=== PATIENT | female | born 1965 | race Caucasian/White ===

== ENCOUNTER 2020-04-14 09:33 | Emergency (ER) | payer BC, SELFPAY ==
[2020-04-14 09:35] VITALS: BP 115/55; PULSE 79; RESP 18; TEMP 36.7; O2SAT 98; BMI 32.1
== END 2020-04-14 10:58 | disposition left against medical advice (07) ==
LOC: HO.ED 10:57
PROVIDERS: Emergency Provider Emergency Medicine; PCP Internal Medicine
DX: R51.9 Headache, unspecified (principal); R42 Dizziness and giddiness
CPT/HCPCS: 99281; 99282; 99283

== ENCOUNTER → 2020-08-04 12:59 | Outpatient (REF) | payer BC, SELFPAY ==
--- NOTE | 2020-08-04 13:15 | ECG_ITS ---
Hook-up date: 2020-08-04 13:18:00 Duration: 47:59:00 Test Indications: PALPITATIONS Medications: [id number] QRS complexes 2 Ventricular ectopics which represent <1 % of total QRS comp. 32 Supraventricular ectopics which represent <1 % of total QRS comp. * Paced QRS complexs which represent % of total QRS comp. VENTRICULAR ECTOPY 0 Isolated 0 Bigeminal Cycles 1 Couplets 0 Runs 0 Beats in Runs * Beats LONGEST at * BPM at :: -- * Beats FASTEST at * BPM at :: -- SUPRAVENTRICULAR ECTOPY 27 Isolated 1 Couplets 1 Runs 3 Beats in Runs 3 Beats LONGEST at 128 BPM at 07:45:41 2020-08-05 3 Beats FASTEST at 128 BPM at 07:45:41 2020-08-05 HEART RATES 50 MIN at 04:18:33 2020-08-05 83 AVG 164 MAX at 17:54:22 2020-08-04 LONGEST RR 1.3040 secs at 05:39:30 2020-08-05 S-T LEVELS Channel 1 - 128 mm at 13:18:00 2020-08-04 - 128 mm at 13:18:00 2020-08-04 Channel 2 - 128 mm at 13:18:00 2020-08-04 - 128 mm at 13:18:00 2020-08-04 Channel 3 - 128 mm at 03:23:71 -- - 128 mm at 03:23:71 Basic rhythm Normal sinus rhythm No long pause or profound bradycardia Rare Premature atrial complexes Patient did not report any symptoms in the diary Referred By: Allie Rossi Overread By: SALO SUAZO MD
== END ==
LOC: HO.CARD 12:59
PROVIDERS: PCP Internal Medicine; Visit Provider Psychiatry & Neurology Neurology
DX: R00.2 Palpitations (principal)
CPT/HCPCS: 93225; 93226

== ENCOUNTER 2020-08-30 15:09 | Outpatient (REF) | payer BC, SELFPAY ==
[2020-08-30 16:37] LABS: MANUAL DIFF FLAG NO
[2020-08-30 16:42] LABS: Basophils Percent Auto 0.4 % (0-2); Eosinophils Absolute Auto 0.1 X10*3/uL (0.0-0.4); Eosinophils Percent Auto 1.2 % (0-4); Hematocrit 41.8 % (37-47); Hemoglobin 14.3 g/dl (12.0-16.0); Imm Gran Abs Auto 0.02 X10*3/uL (0.00-0.03); Imm Gran Pct Auto 0.2 % (0.0-0.4); Lymphocytes Absolute Auto 2.8 X10*3/uL (1.2-4.9); Lymphocytes Percent Auto 30.7 % (20-40); Mean Corpuscular HGB Conc 34.2 g/dl (31.0-35.0); Mean Corpuscular Hemoglobin 29.1 pg (27.0-33.0); Mean Corpuscular Volume 85.1 fL (80-98); Mean Platelet Volume 9.9 fL (9.4-12.3); Monocytes Absolute Auto 0.5 X10*3/uL (0.1-1.2); Monocytes Percent Auto 5.6 % (2-11); Neutrophils Absolute Auto 5.6 X10*3/uL (2.0-8.3); Neutrophils Percent Auto 61.9 % (45-73); Platelet Count 221 X10*3/uL (160-400); Red Blood Count 4.91 X10*6/uL (4.20-5.50); Red Cell Distribution Width 12.7 % (11.0-16.0); White Blood Count 9.1 X10*3/uL (4.8-10.8)
[2020-08-30 17:05] LABS: Alanine Aminotransferase 21 U/L (0-31); Albumin Level 4.1 g/dL (3.5-5.0); Alkaline Phosphatase 81 U/L (39-117); Anion Gap 15 (12-20); Aspartate Amino Transferase 22 U/L (5-31); Bilirubin Total 0.8 mg/dL (0.0-1.0); Blood Urea Nitrogen 11 mg/dL (9-16); Calcium 9.5 mg/dL (8.4-10.2); Carbon Dioxide 22 mmol/L (22-29); Chloride 106 mmol/L (96-108); Cholesterol 173 mg/dL; Estimated Glomerular Filt Rate > 60; Glucose Fasting 83 mg/dL (60-99); HDL Cholesterol 54 mg/dL; LDL Cholesterol Calculated 109 mg/dl; Potassium 3.9 mmol/L (3.3-5.1); Sodium 139 mmol/L (135-145); Total Protein 6.6 g/dL (6.5-8.0); Triglycerides 53 mg/dL
[2020-08-30 17:27] LABS: TSH reflex Free T4 1.85 uIU/mL (0.32-4.0)
== END 2020-08-30 15:10 | disposition home or self-care (01) ==
LOC: HO.HMGCLDS 15:09
PROVIDERS: PCP Internal Medicine; Visit Provider Internal Medicine
DX: R00.2 Palpitations (principal); R42 Dizziness and giddiness
CPT/HCPCS: 36415; 80053; 80061; 84443; 85025

== ENCOUNTER → 2020-10-11 08:26 | Outpatient (BNVA) | payer BC, SELFPAY | PROVIDERS: PCP Internal Medicine; Referring Provider Internal Medicine; Visit Provider Internal Medicine ==

== ENCOUNTER → 2020-11-01 15:59 | Outpatient (REF) | payer BC, SELFPAY | LOC: HO.SL 15:59 | PROVIDERS: PCP Internal Medicine; Visit Provider Internal Medicine | DX: G47.33 Obstructive sleep apnea (adult) (pediatric) (principal); R00.2 Palpitations | CPT/HCPCS: 95806 ==

== ENCOUNTER → 2020-11-13 08:34 | Outpatient (REF) | payer BC, SELFPAY ==
--- NOTE | 2020-11-13 08:38 | CA_ITS ---
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 The calculated ejection fraction is 63% by biplane method. - No obvious valvular pathology seen on this study. Findings Left Ventricle Normal left ventricular cavity size. There is normal left ventricular wall thickness. The left ventricular systolic function is normal. The calculated ejection fraction is 63% by biplane method. There is no evidence of regional wall motion abnormalities. Diastolic function is normal for age. Right Ventricle Normal right ventricular cavity size and systolic function. Atria Both atria are normal in size. Aortic Valve There is a normal trileaflet aortic valve. There is no aortic valve stenosis. There is no aortic valve regurgitation. Mitral Valve The mitral valve appears normal. There is trace mitral valve regurgitation. There is no mitral valve stenosis. Pulmonic Valve The pulmonic valve was not well visualized. Tricuspid Valve Normal tricuspid valve structure. There is mild tricuspid valve regurgitation. The pulmonary artery systolic pressure is normal. Great Vessels The aortic annulus, sinuses of valsalva, and asc aorta are normal in size. Venous The inferior vena cava is normal in size and collapses greater than 50% with inspiration. Pericardium/Pleural There is no evidence of pericardial effusion. Prior Study Comparison No prior study available for comparison. Recommendations, Care & Conclusions No obvious valvular pathology seen on this study. Measurements 2D Linear Measurements IVSd: 0.79 0.6-0.9/0.6-1.0 cm LVIDd: 4.50 3.9-5.3/4.2-5.9 cm LVIDd Index: 2.53 2.4-3.2/2.2-3.1 cm/m2 LVIDs: 2.89 2.0-3.6 cm LVPWd: 0.79 0.7-1.1 cm Ao Root: 2.60 2.1-3.5 cm LA Diam: 3.20 2.7-3.8/3.0-4.0 cm LAIDs Index: 1.80 1.5-2.3 cm/m2 LV Mass: 139.21 67-162/88-224 g LV Mass Index: 78.21 43-95/49-115 g/m2 LVOT Diam: 1.90 3.0+(-)1.3 cm 2D Systolic Function EF 2C: 62.80 >55% EF BiP: 63.00 >55% Mitral Valve MV Pk E: 0.67 MV PK A: 0.61 MV Decel Time: 160.00 E/A: 1.10 E'Lateral: 8.49 E'Medial: 8.05 E/E' Med: 8.40 E/E' Lat: 7.90 PHT: 47.00 MVA PHT: 4.68 Decel [place]: 4.21 Aortic Valve AoV Pk Harry: 1.05 AoV Pk Grad: 4.00 LVOT LVOT Pk Harry: 0.96 LVOT Mn Harry: 0.60 LVOT VTI: 0.22 LVOT Pk Grad: 4.00 LVOT Mn Grad: 2.00 LVOT Diam: 1.90 LVOT Area: 2.84 Diastolic Function MV Pk E: 0.67 MV Pk A: 0.61 E/A: 1.10 E'Medial: 8.05 E/E' Med: 8.40 E' Laterial: 8.49 E/E' Lat: 7.90 Right Ventricle TAPSE (mm): 1.87 Tricuspid Valve TR Pk Harry: 2.17 TR Pk Grad: 19.00 RA Press: 3.00 RVSP: 22.00 Great Vessels Aorta Ao Root-2D: 2.60 2.0-3.7 cm Ao Asc: 2.90 2.1-3.4 cm Updated in Other Vendor System with Status of Final Ed De La Cruz MD electronically signed on 11/13/2020 11:18:52 AM with status of Final
--- NOTE | 2020-11-13 08:38 | HM_ITS ---
Conclusion: 1. Patient was monitored for total period of 13 days and 21 hours. 2. Baseline rhythm is normal sinus rhythm with average heart rate of 79 beats per minute 3. 2 pauses noted with the longest pause of 2.62 seconds happening on 2nd day at 17:46 4. 3 short burst of supra tachycardia, longest of 9 beats 5. Total of 826 PACs accounting for 0.05% of total beats are cardiac for very rare PACs 6. No patient reported events MTDD
== END ==
LOC: HO.CARD 08:34
PROVIDERS: Visit Provider Internal Medicine
DX: R00.2 Palpitations (principal)
CPT/HCPCS: 93246; 93306; Q9957

== ENCOUNTER → 2020-12-05 15:25 | Outpatient (BNVA) | payer BC, SELFPAY | PROVIDERS: PCP Internal Medicine; Visit Provider Internal Medicine ==

== ENCOUNTER → 2020-12-07 15:09 | Outpatient (BNVA) | payer BC, SELFPAY | PROVIDERS: PCP Internal Medicine; Referring Provider Internal Medicine; Visit Provider Internal Medicine ==

== ENCOUNTER 2021-01-18 15:57 | Outpatient (REF) | payer BC, SELFPAY ==
--- NOTE | 2021-01-18 17:23 | PFT_ITS ---
Forced vital capacity, FEV1, GNL93-34, and MVV are all normal. Post bronchodilator therapy, there is no significant change. Total lung capacity and residual volume normal. Diffusion capacity normal. CONCLUSION: Normal pulmonary function test. No evidence of obstructive or restrictive pulmonary disorder. Tank Morris MD MSB/MODL / [phone]
== END 2021-01-18 15:58 | disposition home or self-care (01) ==
LOC: HO.RESP 15:57
PROVIDERS: PCP Internal Medicine; Visit Provider Internal Medicine
DX: J44.9 Chronic obstructive pulmonary disease, unspecified (principal); G47.34 Idiopathic sleep related nonobstructive alveolar hypoventilation; F17.200 Nicotine dependence, unspecified, uncomplicated
CPT/HCPCS: 94060; 94727; 94729

== ENCOUNTER 2021-02-02 14:07 | Outpatient (REF) | payer BC, SELFPAY ==
--- NOTE | ~2021-02-02 | CT_ITS ---
EXAMINATION: CT CHEST SCREENING CLINICAL INFORMATION: Nicotine dependence, cigarettes and complicated. COMPARISON: CT chest 12/02/2017. TECHNIQUE: Multidetector volumetric CT imaging of the chest is performed without contrast using low dose technique. Additional 2D coronal and sagittal reformatted images and axial 3D maximum intensity projection (MIP) images are generated on the CT workstation. This CT examination was performed using dose optimization techniques as appropriate, variously including the following: *Automated exposure control *Adjustment of mA and/or kV according to patient size (this includes techniques or standardized protocols for targeted exams where dose is matched to indication/reason for exam; i.e. extremities or head) *Use of iterative reconstruction technique DLP: 49 mGy-cm. FINDINGS: LUNGS: There is a 2 mm nodule right apical lobe axial image 82/6, 2 mm nodule right upper lobe medially axial image 85/6. Previously visualized right upper lobe nodule posteriorly subpleural location is not seen. Previously visualized ground-glass attenuation right upper lobe adjacent to the major fissure has resolved. There is no new mass or nodule seen. There is centrilobular and paraseptal emphysema. MEDIASTINUM: The central trachea and the bronchi widely patent. The thyroid lobes are symmetrical. There is a 7 mm 3 carinal lymph node. Heart size and the great vessels are normal caliber. No pericardial effusion seen. PLEURA: There is no pleural effusion. No pleural mass or thickening. AXILLA: No lymphadenopathy. UPPER ABDOMEN: Visualized liver, spleen, pancreas and bilateral adrenal glands unremarkable. The gallbladder has been surgically removed. OSSEOUS STRUCTURES: There is mild ventral spondylosis mid and lower dorsal spine. No lytic process. CT/CT lung screening IMPRESSION: Emphysema with small right upper lobe nodules are stable. Right upper lobe pulmonary nodule posterior segment seen previously is not seen at this time. No new nodules seen. Ground-glass attenuation seen in the right lower lobe superior segment has resolved. No abnormal mediastinal or axillary lymphadenopathy. No change in emphysema. ASSESSMENT: Lung-RADS category 2: Benign. RECOMMENDATION: Low-dose annual CT chest.
== END 2021-02-02 14:08 | disposition home or self-care (01) ==
LOC: HO.CT 14:07
PROVIDERS: PCP Internal Medicine; Visit Provider Physician Assistant Medical
DX: Z12.2 Encounter for screening for malignant neoplasm of respiratory organs (principal); F17.210 Nicotine dependence, cigarettes, uncomplicated
CPT/HCPCS: 71271; G0296

== ENCOUNTER → 2021-02-06 14:52 | Outpatient (BNVA) | payer BC, SELFPAY | PROVIDERS: PCP Internal Medicine; Visit Provider Internal Medicine ==

== ENCOUNTER 2021-05-22 07:27 | Emergency (ER) | payer BC, SELFPAY ==
--- NOTE | ~2021-05-22 | CT_ITS ---
EXAMINATION: CT BRAIN, CT CERVICAL SPINE, CT CHEST, ABDOMEN PELVIS WITHOUT CONTRAST. CLINICAL INFORMATION: Fall and neck pain. COMPARISON: None TECHNIQUE: 5 mm thin axial and reformatted 2 mm thin sagittal and coronal images of brain were obtained. Axial 3 mm thin and reformatted 2 mm thin images of cervical spine were obtained. Lastly axial 5 mm thin and reformatted 3 mm thin sagittal and coronal images of chest, abdomen and pelvis were obtained without contrast. DLP 2060 mGy. FINDINGS: BRAIN: There is no acute intra-axial, extra-axial bleed, masses, collection or midline shift. There is no acute infarction in evolution. There is no edema. The house to white matter differentiation is maintained normal. The lateral ventricles are symmetrical in size and configuration without enlargement. Bone windows reveal no calvarial fracture. There is a 6 mm cortical lucency along the right parietal bone on coronal image 140/34. There is no scalp soft tissue abnormality. Bilateral paranasal sinuses and mastoid air cells are well-aerated. CERVICAL SPINE: There is mild straightening of cervical lordosis. The vertebral heights and alignment is normal. There is grade 1 anterolisthesis C4 over C5. Rest of the alignment is normal. There is mild loss of C4-C5 disc height. Rest the disc heights are preserved normal. The craniovertebral junction and the C1-C2 alignment is normal. There is no visible acute fracture, dislocation or subluxation seen. There is mild degenerative facet joint arthropathy C6-C7, C5-C6 and bilateral C3-C4 disc levels. The lung apices are clear. Central tracheal airway is widely patent. Visualized bilateral parotid and submandibular glands are unremarkable. The right thyroid lobe is enlarged with posterior extension. CHEST: Both lungs are are expanded with diffuse groundglass attenuation seen in both upper lobes and dependent segments of both lower lobes. No focal contusion, or consolidation seen. There is mild emphysematous changes in both upper lobes. There is no pleural effusion or pneumothorax. No pleural calcified pleural plaques. Heart size and the great vessels are normal caliber. No mediastinal mass or lymphadenopathy seen. No abnormal lymph nodes. No pedicle effusion. There are no abnormal axillary lymph nodes. The chest wall is unremarkable. No osseous thoracic cage fractures visualized. There is mild ventral spondylosis mid and lower dorsal spine. ABDOMEN AND PELVIS: Visualized liver, spleen, pancreas and bilateral adrenal glands unremarkable. The gallbladder has been surgically removed. No solid organ laceration or free fluid seen. There is no hematoma. The abdominal aorta is of normal caliber. No recurrent mass or adenopathy seen. No abnormal lymph nodes. Both kidneys are symmetrical in size and density. No radiopaque calculi or hydronephrosis seen. Abdominal wall appears unremarkable. There is scattered stool and gas seen in the colon without any significant distention. The small bowel loops are normal caliber. Appendix is normal caliber. Imaging through the pelvis reveals anteverted uterus. There is no free fluid or free air seen. Bone windows reveal no lytic or sclerotic process. No fracture visualized. CT/CT abdomen pelvis wo con IMPRESSION: No acute intra-axial cranial process seen. There is a 6 mm lucency right parietal cortex. Question vascular rodgers or cyst. There is no acute fracture or dislocation in cervical spine. Mild degenerative facet joint arthropathy as described above. No acute process seen in the chest, abdomen or pelvis.
[2021-05-22 07:38] VITALS: BP 110/57; PULSE 72; RESP 18; TEMP 36.7; O2SAT 97; BMI 39.2
--- NOTE | 2021-05-22 07:42 | ECG_ITS ---
Test Reason : ?syncope Blood Pressure : / mmHG Vent. Rate : 063 BPM Atrial Rate : 063 BPM P-R Int : 156 ms QRS Dur : 078 ms QT Int : 420 ms P-R-T Axes : 027 036 034 degrees QTc Int : 429 ms Normal sinus rhythm Low voltage QRS Borderline ECG No previous ECGs available Referred By: Generic ED Physician Electronically Signed By:SALO SUAZO MD
[2021-05-22 08:00] VITALS: BP 107/61; PULSE 61; RESP 16; O2SAT 96
--- NOTE | 2021-05-22 08:46 | ED_ITS ---
HPI - Fall General Chief Complaint: Fall Stated Complaint: Fall/INJ Time Seen by Provider: 05/22/21 08:41 Source: patient and family (Spouse) Mode of arrival: ambulatory Limitations: no limitations History of Present Illness HPI Narrative: 55 years old female came in for evaluation after a fall twice since yesterday. Patient was taking her horses out when she thinks she tripped and fell on her right side, complaining of right chest wall pain, decline feeling dizzy or lightheadedness before the fall, no LOC before or after the fall. Patient complained of right shoulder pain/right chest wall/ribs pain. Patient also had a fall yesterday which is unusual for the patient to have a decline chest pain, no weakness, no numbness. Related Data Home Medications Medication Instructions Recorded Confirmed No Known Home Meds 04/27/20 12/07/20 Allergies Allergy/AdvReac Type Severity Reaction Status Date / Time aspirin [ASPIRIN] Allergy Unknown NAUSEA & Verified 05/22/21 07:38 VOMITING meperidine [From DEMEROL] Allergy Unknown UNKNOWN Verified 05/22/21 07:38 ibuprofen [IBUPROFEN] AdvReac Unknown NAUSEA & Verified 05/22/21 07:38 VOMITING Review of Systems Review of Systems: All other systems are reviewed and are negative Constitutional: Reports as per HPI and Reports no additional constitutional comp laints Eyes: Reports as per HPI and Reports no additional eye complaints Reports system reviewed and no additional complaints, except as documented Cardiovascular: Reports as per HPI and Reports no additional cardiovascular complaints Respiratory: Reports as per HPI and Reports no additional respiratory complaints Gastrointestinal: Reports as per HPI and Reports no additional gastrointestinal complaints Genitourinary: Reports no additional female genitourinary complaints Musculoskeletal: Reports no additional musculoskeletal complaints Skin/Breast: Reports system reviewed and no additional complaints, except as docu Psychiatric: Reports no additional psychiatric complaints Endocrine: Reports no additional endocrine complaints Hematologic/Lymphatic: Reports no additional hematologic/lymphatic complaints Allergic/Immunologic: Reports no additional allergic/immunologic complaints Reports system reviewed and no additional complaints, except as documented and Reports Abnormal speech present [facility] Past Medical History Medical History COPD (chronic obstructive pulmonary disease) Nocturnal hypoxemia Personal history of nicotine dependence Smoker Surgical History History of cholecystectomy (~2010) History of kidney surgery History of tonsillectomy Family History Family History Father Atrial fibrillation Diabetes Enlarged prostate Dementia Brother Atrial fibrillation Mother Dementia Breast cancer Social History Social History Housing: House Alcohol intake: current Alcohol intake frequency: does not drink Patient Tobacco Use Status: Current everyday Tobacco user Tobacco use type: Cigarette Cigarette Packs Per Day: 1 Cigarettes Per Day: 20 Years Smoked: onset 17, 1ppd x 38yrs - 38pyh Use of substances other than those prescribed or required for medical reasons: No Advance Directives: Yes Advance Directives Information Provided: No Advance Directives on File: No Current occupational status: employed Physical Exam Vital Signs: Vital Signs: Last Vital Signs Temp 98.0 F 05/22/21 07:38 Pulse 58 05/22/21 10:23 Resp 15 05/22/21 10:23 BP 108/61 05/22/21 10:23 Pulse Ox 97 05/22/21 10:23 BMI result Body Mass Index 39.2 Vital signs have been reviewed as appeared to be correct. Blood pressure normal. Heart rate normal. Respiration rate normal. Temperature normal. Oxygen saturation normal. Appearance: Alert. Oriented X3. No acute distress. Head: Normal external exam. Normocephalic. Atraumatic. No Gracia signs noted. No raccoon eyes noted Eyes: PERRLA. EOMI. Conjunctiva and sclera normal. Eyelids normal. ENT: TM's Normal. Pharynx normal. Uvula midline. Moist mucous membranes. No trismus noted. No drooling noted. No muffled voice noted. Neck: Normal inspection. Neck supple. FROM. No adenopathy. Thyroid Normal. No meningeal signs. No neck mass noted. CVS: Normal heart rate and rhythm. Heart sound normal. No murmurs noted. Pulses normal throughout. Respiratory: No respiratory distress. Painless inspiration. Breath sounds normal. No wheezes/rales/rhonchi noted. Chest tenderness to the right chest wall, accessory muscle usage noted or decreased air movement noted. Abdomen: Soft, tender right upper quadrant, no ecchymosis, no rebound tenderness, no guarding. Bowel sounds normal in all 4 quadrants. No distention noted. No organomegaly noted. No visible injury noted. Back: No CVA tenderness. Full range of motion noted. Skin: Skin warm and dry. Normal skin color. Normal skin turgor. No rashes/lesions/lacerations noted. Extremities: No lower extremity edema. Extremities exhibit normal range of motion. Extremities nontender. Neuro: Oriented X 3. Cranial nerve exam: II-XII are grossly intact No motor deficit. No sensory deficit. Reflexes normal. Course Course Course Narrative: Assessment and plan. 55-year-old female came in for evaluation after having a mechanical fall, patient declined LOC or being lightheadedness or dizzy. Patient has unremarkable electrolytes, slight leukocytosis could be stress related. Unremarkable cardiac enzymes, patient had a CT head/C- spine/chest/abdomen and pelvis unremarkable. EKG is unremarkable. MDM - Fall Medical Records Attestation: I reviewed the patient's medical records. Lab Data Attestation: I reviewed the patient's lab results. Result diagrams: 05/22/21 09:13 05/22/21 09:13 Labs: Lab Results 05/22/21 05/22/21 05/22/21 Range/Units 09:13 09:13 09:13 WBC 12.5 H (4.8-10.8) X10*3/uL RBC 5.30 (4.20-5.50) X10*6/uL Hgb 15.3 (12.0-16.0) g/dl Hct 45.8 (37.0-47.0) % MCV 86.4 (80.0-98.0) fL MCH 28.9 (27.0-33.0) pg MCHC 33.4 (31.0-35.0) g/dl RDW 12.7 (11.0-16.0) % Plt Count 230 (160-400) X10*3/uL MPV 9.8 (9.4-12.3) fL Immature Gran % (Auto) 0.5 H (0.0-0.4) % Neut % (Auto) 77.2 H (45-73) % Lymph % (Auto) 16.5 L (20-40) % Garden % (Auto) 4.8 (2-11) % Eos % (Auto) 0.6 (0-4) % Baso % (Auto) 0.4 (0-2) % Lymph # (Auto) 2.1 (1.2-4.9) X10*3/uL Garden # (Auto) 0.6 (0.1-1.2) X10*3/uL Eos # (Auto) 0.1 (0.0-0.4) X10*3/uL Baso # (Auto) 0.1 (0.0-0.2) X10*3/uL Abs Immat Gran (auto) 0.06 H (0.00-0.03) X10*3/uL Absolute Neuts (auto) 9.7 H (2.0-8.3) x10*3/uL Absolute Nucleated RBC 0.000 (0.0-0.012) X10*3/uL Nucleated RBC % (auto) 0.0 (0.0-0.2) /100WBC Sodium 142 (135-145) mmol/L Potassium 4.4 (3.3-5.1) mmol/L Chloride 109 H (96-108) mmol/L Carbon Dioxide 26 (22-29) mmol/L Anion Gap 11 L (12-20) BUN 11 (9-16) mg/dL Creatinine 0.84 (0.5-1.4) mg/dL Estim Creat Clear Calc 81.3 Estimated GFR > 60 Random Glucose 132 H (60-115) mg/dL Calcium 9.5 (8.4-10.2) mg/dL Total Bilirubin 0.5 (0.0-1.0) mg/dL Direct Bilirubin 0.2 (0.0-0.5) mg/dL AST 23 (5-31) U/L ALT 31 (0-31) U/L Alkaline Phosphatase 84 (39-117) U/L Troponin I High Sens < 3.5 (<3.5-17.0) ng/L B-Natriuretic Peptide 17 (<100) pg/mL Total Protein 6.8 (6.5-8.0) g/dL Albumin 4.1 (3.5-5.0) g/dL Lipase 18 (8-78) U/L Urine Color Urine Appearance Urine pH (5.0-8.0) Ur Specific [place] (1.005-1.025) Urine Protein (NEG-TRACE) MG/DL Urine Glucose (UA) (NEG) MG/DL Urine Ketones (NEG) MG/DL Urine Blood (NEG) Urine Nitrite (NEG) Ur Leukocyte Esterase (NEG) Urine RBC (0) /HPF Urine WBC (0-4) /HPF Ur Squamous Epith Cells /LPF Urine Bacteria /LPF Urine Mucus /LPF 05/22/21 Range/Units 09:57 WBC (4.8-10.8) X10*3/uL RBC (4.20-5.50) X10*6/uL Hgb (12.0-16.0) g/dl Hct (37.0-47.0) % MCV (80.0-98.0) fL MCH (27.0-33.0) pg MCHC (31.0-35.0) g/dl RDW (11.0-16.0) % Plt Count (160-400) X10*3/uL MPV (9.4-12.3) fL Immature Gran % (Auto) (0.0-0.4) % Neut % (Auto) (45-73) % Lymph % (Auto) (20-40) % Garden % (Auto) (2-11) % Eos % (Auto) (0-4) % Baso % (Auto) (0-2) % Lymph # (Auto) (1.2-4.9) X10*3/uL [place] # (Auto) (0.1-1.2) X10*3/uL Eos # (Auto) (0.0-0.4) X10*3/uL Baso # (Auto) (0.0-0.2) X10*3/uL Abs Immat Gran (auto) (0.00-0.03) X10*3/uL Absolute Neuts (auto) (2.0-8.3) x10*3/uL Absolute Nucleated RBC (0.0-0.012) X10*3/uL Nucleated RBC % (auto) (0.0-0.2) /100WBC Sodium (135-145) mmol/L Potassium (3.3-5.1) mmol/L Chloride (96-108) mmol/L Carbon Dioxide (22-29) mmol/L Anion Gap (12-20) BUN (9-16) mg/dL Creatinine (0.5-1.4) mg/dL Estim Creat Clear Calc Estimated GFR Random Glucose (60-115) mg/dL Calcium (8.4-10.2) mg/dL Total Bilirubin (0.0-1.0) mg/dL Direct Bilirubin (0.0-0.5) mg/dL AST (5-31) U/L ALT (0-31) U/L Alkaline Phosphatase (39-117) U/L Troponin I High Sens (<3.5-17.0) ng/L B-Natriuretic Peptide (<100) pg/mL Total Protein (6.5-8.0) g/dL Albumin (3.5-5.0) g/dL Lipase (8-78) U/L Urine Color YELLOW Urine Appearance HAZY Urine pH 5.5 (5.0-8.0) Ur Specific [place] 1.020 (1.005-1.025) Urine Protein NEG (NEG-TRACE) MG/DL Urine Glucose (UA) NEG (NEG) MG/DL Urine Ketones NEG (NEG) MG/DL Urine Blood 1+ H (NEG) Urine Nitrite NEG (NEG) Ur Leukocyte Esterase NEG (NEG) Urine RBC 0-2 (0) /HPF Urine WBC 0-2 (0-4) /HPF Ur Squamous Epith Cells 2+ /LPF Urine Bacteria 1+ /LPF Urine Mucus 1+ /LPF Imaging Data Head CT: Attestation: I personally reviewed and interpreted this imaging study as follows: Radiologist's impression: BRAIN: There is no acute intra-axial, extra-axial bleed, masses, collection or midline shift. There is no acute infarction in evolution. There is no edema. The house to white matter differentiation is maintained normal. The lateral ventricles are symmetrical in size and configuration without enlargement. Bone windows reveal no calvarial fracture. There is a 6 mm cortical lucency along the right parietal bone on coronal image 140/34. There is no scalp soft tissue abnormality. Bilateral paranasal sinuses and mastoid air cells are well-aerated.? Cervical spine CT: Attestation: I personally reviewed and interpreted this imaging study as follows: Radiologist's impression: There is mild straightening of cervical lordosis. The vertebral heights and alignment is normal. There is grade 1 anterolisthesis C4 over C5. Rest of the alignment is normal. There is mild loss of C4-C5 disc height. Rest the disc heights are preserved normal. The craniovertebral junction and the C1-C2 alignment is normal. There is no visible acute fracture, dislocation or subluxation seen. There is mild degenerative facet joint arthropathy C6-C7, C5-C6 and bilateral C3-C4 disc levels. The lung apices are clear. Central tracheal airway is widely patent. Visualized bilateral parotid and submandibular glands are unremarkable. The right thyroid lobe is enlarged with posterior extension. Chest CT: Attestation: I personally reviewed and interpreted this imaging study as follows: Radiologist's impression: oth lungs are are expanded with diffuse groundglass attenuation seen in both upper lobes and dependent segments of both lower lobes. No focal contusion, or consolidation seen. There is mild emphysematous changes in both upper lobes. There is no pleural effusion or pneumothorax. No pleural calcified pleural plaques. Heart size and the great vessels are normal caliber. No mediastinal mass or lymphadenopathy seen. No abnormal lymph nodes. No pedicle effusion. There are no abnormal axillary lymph nodes. The chest wall is unremarkable. No osseous thoracic cage fractures visualized. There is mild ventral spondylosis mid and lower dorsal spine. Abdomen and pelvis CT: Attestation: I personally reviewed and interpreted this imaging study as follows: Radiologist's impression: Visualized liver, spleen, pancreas and bilateral adrenal glands unremarkable. The gallbladder has been surgically removed. No solid organ laceration or free fluid seen. There is no hematoma. The abdominal aorta is of normal caliber. No recurrent mass or adenopathy seen. No abnormal lymph nodes. Both kidneys are symmetrical in size and density. No radiopaque calculi or hydronephrosis seen. Abdominal wall appears unremarkable. There is scattered stool and gas seen in the colon without any significant distention. The small bowel loops are normal caliber. Appendix is normal caliber. Imaging through the pelvis reveals anteverted uterus. There is no free fluid or free air seen. Bone windows reveal no lytic or sclerotic process. No fracture visualized. ECG Data Attestation: I personally reviewed and interpreted this ECG as follows: Interpretation: Normal sinus rhythm at 63 beats per minutes, normal axis deviation, normal intervals. No ST-T changes. Discharge Plan Discharge Clinical Impression: Accident due to mechanical fall without injury, Chest wall contusion Patient Disposition: Home, Self-Care Instructions: Contusion in Adults (ED) Additional Instructions: Take Tylenol 500 mg or ibuprofen 200 mg every 6 hours if needed for pain, seek medical attention if having chest pain or feeling dizzy or lightheadedness. Prescriptions: No Action No Known Home Meds 0RF Referrals: Jhoana Rossi MD [Primary Care Provider] - 2 days
[2021-05-22] MEDS: 0.9 % Sodium Chloride 1,000 ML 999 ML IV (09:16)
[2021-05-22 09:17] LABS: MANUAL DIFF FLAG NO
[2021-05-22 09:21] LABS: Basophils Absolute Auto 0.1 X10*3/uL (0.0-0.2); Basophils Percent Auto 0.4 % (0-2); Eosinophils Absolute Auto 0.1 X10*3/uL (0.0-0.4); Eosinophils Percent Auto 0.6 % (0-4); Hematocrit 45.8 % (37.0-47.0); Hemoglobin 15.3 g/dl (12.0-16.0); Imm Gran Abs Auto 0.06 X10*3/uL (0.00-0.03); Imm Gran Pct Auto 0.5 % (0.0-0.4); Lymphocytes Absolute Auto 2.1 X10*3/uL (1.2-4.9); Lymphocytes Percent Auto 16.5 % (20-40); Mean Corpuscular HGB Conc 33.4 g/dl (31.0-35.0); Mean Corpuscular Hemoglobin 28.9 pg (27.0-33.0); Mean Corpuscular Volume 86.4 fL (80.0-98.0); Mean Platelet Volume 9.8 fL (9.4-12.3); Monocytes Absolute Auto 0.6 X10*3/uL (0.1-1.2); Monocytes Percent Auto 4.8 % (2-11); Neutrophils Absolute Auto 9.7 x10*3/uL (2.0-8.3); Neutrophils Percent Auto 77.2 % (45-73); Platelet Count 230 X10*3/uL (160-400); Red Cell Distribution Width 12.7 % (11.0-16.0); White Blood Count 12.5 X10*3/uL (4.8-10.8)
[2021-05-22 09:49] LABS: Alanine Aminotransferase 31 U/L (0-31); Albumin Level 4.1 g/dL (3.5-5.0); Alkaline Phosphatase 84 U/L (39-117); Anion Gap 11 (12-20); Aspartate Amino Transferase 23 U/L (5-31); Bilirubin Direct 0.2 mg/dL (0.0-0.5); Bilirubin Total 0.5 mg/dL (0.0-1.0); Blood Urea Nitrogen 11 mg/dL (9-16); Calcium 9.5 mg/dL (8.4-10.2); Carbon Dioxide 26 mmol/L (22-29); Chloride 109 mmol/L (96-108); Creatinine Clr Calc Pharmacy 81.3; Estimated Glomerular Filt Rate > 60; Glucose Random 132 mg/dL (60-115); Lipase 18 U/L (8-78); Potassium 4.4 mmol/L (3.3-5.1); Sodium 142 mmol/L (135-145); Total Protein 6.8 g/dL (6.5-8.0)
[2021-05-22] MEDS: Acetaminophen 325 MG TABLET 650 MG PO (09:52)
[2021-05-22 09:57] LABS: B Type Natriuretic Peptide 17 pg/mL (<100); Troponin-I High Sensitivity < 3.5 ng/L (<3.5-17.0)
[2021-05-22 10:05] LABS: Appearance Urine HAZY; Color Urine YELLOW; Glucose Urine UA NEG (NEG); Leukocyte Esterase Urine NEG (NEG); Nitrite Urine NEG (NEG); PH 5.5 (5.0-8.0); UACC Culture Trigger NO; Urine Blood 1+ (NEG); Urine Ketones NEG (NEG); Urine Protein NEG (NEG-TRACE)
[2021-05-22 10:15] LABS: Bacteria Urine 1+ /LPF; RBC Urine 0-2 /HPF (0); Squamous Epithelial Cell Urine 2+ /LPF; WBC Urine 0-2 /HPF (0-4)
[2021-05-22 10:17] LABS: Mucus Urine 1+ /LPF
[2021-05-22 10:23] VITALS: BP 108/61; PULSE 58; RESP 15; O2SAT 97
== END 2021-05-22 12:33 | disposition home or self-care (01) ==
PROVIDERS: Emergency Provider Emergency Medicine; PCP Internal Medicine
DX: S20.211A Contusion of right front wall of thorax, initial encounter (principal); R07.89 Other chest pain; M54.2 Cervicalgia; R07.81 Pleurodynia; W01.0XXA Fall on same level from slipping, tripping and stumbling without subsequent striking against object, initial encounter; Y93.89 Activity, other specified; Y92.71 Barn as the place of occurrence of the external cause; Y99.9 Unspecified external cause status
CPT/HCPCS: 36415; 70450; 71250; 72125; 74176; 80048; 80076; 81001; 83690; 83880; 84484; 85025; 93005; 96360; 99284; 99285

== ENCOUNTER 2021-12-28 16:18 | Outpatient (REF) | payer OTHER, BC, SELFPAY ==
--- NOTE | ~2021-12-28 | XR_ITS ---
EXAMINATION: XR WRIST, LEFT CLINICAL INFORMATION: Sprain of left wrist COMPARISON: None TECHNIQUE: Four views of the left wrist. FINDINGS: Bones have normal alignment and joint spaces are normal. The distal radius and ulna are intact. The radioulnar joint is normal. No acute carpal bone fracture or subluxation. A small, well-corticated ossicle projects distal to the intact ulnar styloid. The metacarpals are normal. The pronator quadratus fat stripe is maintained. XR/XR wrist LT min 3V IMPRESSION: No acute findings in the left wrist. No evidence of carpal bone fracture or subluxation.
== END 2021-12-28 16:19 | disposition home or self-care (01) ==
LOC: HO.HMGCX 16:18
PROVIDERS: PCP Internal Medicine; Visit Provider Internal Medicine
DX: S63.502A Unspecified sprain of left wrist, initial encounter (principal); X58.XXXA Exposure to other specified factors, initial encounter; Y93.9 Activity, unspecified; Y92.9 Unspecified place or not applicable; Y99.9 Unspecified external cause status
CPT/HCPCS: 73110

== ENCOUNTER → 2022-02-06 12:42 | Outpatient (BNVA) | payer BC, SELFPAY | PROVIDERS: PCP Internal Medicine; Visit Provider Orthopaedic Surgery | DX: M18.12 Unilateral primary osteoarthritis of first carpometacarpal joint, left hand (principal) | CPT/HCPCS: 20600; 99202; J1020 ==

== ENCOUNTER 2022-02-26 15:30 | Outpatient (RCR) | payer OTHER, SELFPAY ==
--- NOTE | 2022-01-25 13:40 | MHC.OT.EP ---
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 Pt will benefit from OT to address the problems stated. Frequency and Duration: The patient will be seen 2x wk x 6 wks Short Term Goals: Demo decreased left wrist pain with use of forearm based thumb spica Report sleep not interrupted due to left wrist with use of forearm based thumb spica Demo HEP Demo activitiy modification, jt protection with household activities Inc thumb ramirez abd to >45 deg Left community health nursing director to 30 lb Brigadier Goals: Indep in self management of left wrist tenosynovitis Dec frequency of pain to occassional Pain free with daily activities with modifications as needed 80% of the time Left community health nursing director to < 35 lb Lift > 25 lb box from floor to waist Treatment Plan: Therapeutic Exercise Therapeutic Activity Home Exercise Program Splinting Patient Education Edema Control ADL Training Ultrasound Iontophoresis Soft Tissue Mobilization Other (see comments) Thermal modalities as needed Electronically Signed By: Mariel Cordova OT CHT CLT Please Sign and return to therapist. Thank you once again for your referral.
--- NOTE | 2022-02-04 16:22 | MHC.OT.OP ---
[address] [phone] F: [phone] Occupational Therapy Progress Note Diagnosis: Left radial wrist tendonitis Date of Surgery: Date of Evaluation: 01/25/22 Treatments to Date: 3 Cancellations to Date: 0 No Shows to Date: 0 Subjective: Pt reports no benefit from TS Inc pain since opening a new pill bottle this morning Pain Score: 9 Pain Location: Left thumb and radial wrist Objective Measures: AROM CMC abd 40 deg, MP 70 deg IP 65 deg . OP 7 Multi Line Claims Adjuster R 40 lb L 25 lb Lat pinch R 13 L 4 tip pinch R 9 L 0 3 jaw R 9 L 0 Status: Not Progressing Assessment: Con't high pain at base of left thumb. 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 She reports implementing joint protection techniques as able with home care and animal care at home (6 miniature horses, 1 donkey and 2 small dogs.) She reports no benefit from a trial with a thumb spica orthosis. Pt seen 3 x including today Pin inc with inc tenderness noted with light touch to thenar ms and 1st DC. Trialed iontophoresis with dexamethasone for reducing pain, inflammation. Pt is scheduled for Ortho consult with Dr Christian on 02/06/22 Short Term Goals: Demo decreased left wrist pain with use of forearm based thumb spica Report sleep not interrupted due to left wrist with use of forearm based thumb spica Demo HEP Demo activitiy modification, jt protection with household activities Inc thumb ramirez abd to >45 deg Left groundskeeper to 30 lb Airborne Operations Goals: Indep in self management of left wrist tenosynovitis Dec frequency of pain to occassional Pain free with daily activities with modifications as needed 80% of the time Left groundskeeper to < 35 lb Lift > 25 lb box from floor to waist Frequency and Duration: The patient will be seen 2x wk x 3 wks Treatment Plan: Therapeutic Exercise Therapeutic Activity Home Exercise Program Splinting Patient Education Edema Control ADL Training Ultrasound Iontophoresis Soft Tissue Mobilization Other (see comments) Following Dr Christian consult and recommendations Electronically Signed By: Mariel Cordova OT CHT CLT Reviewed/agree with student documentation: Therapist:
--- NOTE | 2022-02-27 08:59 | MHC.OT.DC ---
[address] [phone] F: [phone] Occupational Therapy Discharge Note Provider: Jhoana Rossi Diagnosis: Left radial wrist tendonitis Date of Surgery: Date of Evaluation: 01/25/22 Date of Discharge: 02/26/22 Treatments to Date: 4 Cancellations to Date: 0 No Shows to Date: 0 Discharge Status: Achieved Goals Improved Function Independent with HEP Discharge Summary: Pt right wrist pain significantly improved after it was injected on 02/06/[address] Christian Pt is indep with her HEP and jt protection principles and techniques to prevent reinjury. 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 Skilled OT is not needed at this time Electronically Signed By: Mariel Cordova OT CHT CLT Reviewed/agree with student documentation: Therapist: Please Sign and return to therapist, thank you for your referral.
== END 2022-04-17 10:16 | disposition home or self-care (01) ==
LOC: HO.OT 15:30
PROVIDERS: PCP Internal Medicine; Visit Provider Internal Medicine
DX: M77.8 Other enthesopathies, not elsewhere classified (principal)
CPT/HCPCS: 29125; 97033; 97035; 97110; 97165; 97530; 97760

== ENCOUNTER 2022-05-01 09:40 | Outpatient (REF) | payer OTHER, BC, SELFPAY ==
--- NOTE | ~2022-05-01 | XR_ITS ---
EXAMINATION: XR hand LT min 3V, XR hand RT min 3V CLINICAL INFORMATION: Reason for Exam M79.642 - Pain in left hand COMPARISON: None. TECHNIQUE: AP, lateral, and oblique views of the bilateral hands XR/XR hand RT min 3V FINDINGS/IMPRESSION: * No acute fracture or dislocation. * Joint spaces are maintained without significant degenerative change. * No soft tissue abnormality.
--- NOTE | ~2022-05-01 | XR_ITS ---
EXAMINATION: XR hand LT min 3V, XR hand RT min 3V CLINICAL INFORMATION: Reason for Exam M79.642 - Pain in left hand COMPARISON: None. TECHNIQUE: AP, lateral, and oblique views of the bilateral hands XR/XR hand LT min 3V FINDINGS/IMPRESSION: * No acute fracture or dislocation. * Joint spaces are maintained without significant degenerative change. * No soft tissue abnormality.
== END 2022-05-01 09:41 | disposition home or self-care (01) ==
LOC: HO.HOSX 09:40
PROVIDERS: Visit Provider Orthopaedic Surgery
DX: M79.642 Pain in left hand (principal); M79.641 Pain in right hand; M18.0 Bilateral primary osteoarthritis of first carpometacarpal joints; R20.0 Anesthesia of skin; M20.021 Boutonniere deformity of right finger(s)
CPT/HCPCS: 73130; 99212

== ENCOUNTER 2022-06-26 09:51 | Outpatient (REF) | payer OTHER, BC, SELFPAY ==
--- NOTE | 2022-06-26 10:00 | EMG_ITS ---
Please see scanned EMG / Nerve Conduction Report. MTDD
== END 2022-06-26 09:52 | disposition home or self-care (01) ==
LOC: HO.NEURO 09:51
PROVIDERS: PCP Internal Medicine; Visit Provider Orthopaedic Surgery
DX: R20.0 Anesthesia of skin (principal); R20.2 Paresthesia of skin
CPT/HCPCS: 95885; 95913

== ENCOUNTER → 2022-08-14 14:44 | Outpatient (BNVA) | payer OTHER, BC, SELFPAY | PROVIDERS: PCP Internal Medicine; Visit Provider Orthopaedic Surgery | DX: M18.0 Bilateral primary osteoarthritis of first carpometacarpal joints (principal); R20.0 Anesthesia of skin; M20.021 Boutonniere deformity of right finger(s) | CPT/HCPCS: 99212 ==

== ENCOUNTER 2022-10-23 14:55 | Outpatient (AMB) | payer BC, SELFPAY ==
[2022-10-23 15:00] VITALS: BP 110/68; PULSE 76; O2SAT 98; BMI 34.0
--- NOTE | 2022-10-23 15:00 | MHC.PC.OV ---
Vital Signs 10/23/22 15:00 Height 5 ft 2 in Weight 186 lb BMI 34.0 BP 110/68 Blood Pressure Location Rt brachial Position Sitting Pulse 76 Pulse Source Pulse Oximeter Pulse Oximetry (%) 98 Oxygen Delivery Method Room Air Intake Visit Reasons: Urinary tract infection Allergies aspirin [ASPIRIN] Allergy (Unknown, Verified 10/23/22 15:00) NAUSEA & VOMITING meperidine [From DEMEROL] Allergy (Unknown, Verified 10/23/22 15:00) UNKNOWN ibuprofen [IBUPROFEN] Adverse Reaction (Unknown, Verified 10/23/22 15:00) NAUSEA & VOMITING Medication List - Last Reconciled 10/23/22 by Jhoana Rossi MD acetaminophen (Tylenol Extra Strength) 500 mg PO Q6H PRN Tobacco use date assessed: 10/23/22 Dental Screening Dental Screen Date: 10/23/22 Did you have a dental visit in the last 12 months?: No Did you have a dental problem in the last 6 months where you did not have access to dental care?: No Was dental information given to patient?: No HPI Urinary tract infection HPI Details Patient is a 57-year-old female who came in today to be evaluated for urinary tract infection Patient says that her symptoms started over the weekend and got worse on Friday when she was evaluated in [facility] She was treated with Macrobid for 5 days they did send in culture patient says that the culture is not back yet but she will call them so they can send the report to me. Patient says that she is still having same symptoms of frequency and urgency We did the urinalysis today which shows blood but no signs of other abnormalities She is also having discomfort right costovertebral angle. There is no history of renal calculi I am changing the antibiotic to Levaquin 500 mg 1 daily for 5 days I have also ordered ultrasound of her kidneys. PFSH Medical History COPD (chronic obstructive pulmonary disease) Nocturnal hypoxemia Personal history of nicotine dependence Smoker Surgical History History of cholecystectomy (~2010) History of kidney surgery History of tonsillectomy Family History Father Atrial fibrillation Diabetes Enlarged prostate Dementia Brother Atrial fibrillation Mother Dementia Breast cancer Social History Housing: House Alcohol intake: current Alcohol intake frequency: does not drink Patient Tobacco Use Status: Current everyday Tobacco user Tobacco use type: Cigarette Cigarette Packs Per Day: 1 Cigarettes Per Day: 20 Years Smoked: onset 17, 1ppd x 38yrs - 38pyh e-Cigarette/Vaping Use: Never Used service: No Current occupational status: employed 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 How often do you have a drink containing alcohol?: Never 3. How often do you have six or more drinks on one occasion?: Never Total Score: 0 Score Reviewed/Action Taken: Yes CATRACHITA-7 AMB Questionnaire CATRACHITA-7 Date CATRACHITA - 7 assessed: 04/03/22 Source: Developed by Drs. Mauro Najera, Juanita Moulton, Chilo Brar and colleagues, with an educational timmy from [employer]. Review of Systems Const Denies chills and Denies fever(s) ENT Denies epistaxis and Denies nasal discharge Card Denies chest pain Resp Denies chest congestion, Denies cough and Denies hemoptysis GI Denies diarrhea and Denies nausea Skin/Breast Denies rash Neuro Reports no additional complaints Psych Reports no additional complaints Endo Reports no additional complaints Physical exam (Primary Care) Vital Signs: Last Vital Signs Pulse 76 10/23/22 15:00 BP 110/68 10/23/22 15:00 Pulse Ox 98 10/23/22 15:00 Oxygen Delivery Method Room Air 10/23/22 15:00 BMI result Body Mass Index 34.0 Tobacco/Smoking Status: Tobacco use Status Tobacco use date assessed 10/23/22 10/23/22 15:02 Patient Tobacco Use Status Current everyday Tobacco 10/23/22 15:02 Tobacco use type Cigarette 10/23/22 15:02 e-Cigarette/Vaping Use Never Used 10/23/22 15:02 Thrive Assessment: Date of Thrive Assessment Date Thrive assessed 04/03/22 10/23/22 15:02 Const General: cooperative, comfortable and no acute distress Orientation/consciousness: patient oriented x3 HENMT Head: Yes normocephalic Eyes General: appearance normal, both eyes and all related structures Neck Neck: Yes supple Resp Effort & Inspection: normal respiratory effort, no cough and no stridor Cardio Rhythm: regular rhythm Heart sounds: S1 normal heart sound present and S2 normal heart sound present Back/Spine/Pelvis Other: Right-sided tenderness CVA Skin General skin exam: turgor normal Neuro General: patient oriented x3, tone normal and moves all extremities Extrem Right lower extremity: no edema Left lower extremity: no edema Results AMB Urinalysis, Automated UA Leukoctes 0 Rasta/uL Last Edit by Freddy Clinton CMA on 10/23/22 15:11 UA Nitrite Negative Last Edit by Freddy Clinton CMA on 10/23/22 15:11 UA Urobilinogen 0.2 mg/dL Last Edit by Freddy Clinton CMA on 10/23/22 15:11 UA Protein 0 mg/dL Last Edit by Freddy Clinton CMA on 10/23/22 15:11 UA pH 6.0 Last Edit by Freddy Clinton CMA on 10/23/22 15:11 UA Blood 10 Jack/uL Last Edit by Freddy Clinton CMA on 10/23/22 15:11 UA Specific Jasper 1.030 Last Edit by Freddy Clinton CMA on 10/23/22 15:11 UA Ketone Negative Last Edit by Freddy Clinton CMA on 10/23/22 15:11 UA Bilirubin 0 mg/dL Last Edit by Freddy Clinton CMA on 10/23/22 15:11 UA Glucose 0 mg/dL Last Edit by Freddy Clinton CMA on 10/23/22 15:11 Results Reviewed Results Reviewed: Laboratory Last Values Urine pH (Auto) 6.0 10/23/22 15:10 Specific Jasper (Auto) 1.030 10/23/22 15:10 Urine Protein (Auto) 0 mg/dL 10/23/22 15:10 Glucose (UA)(Auto) 0 mg/dL 10/23/22 15:10 Urine Ketones (Auto) Negative 10/23/22 15:10 Urine Blood (Auto) 10 Jack/uL 10/23/22 15:10 Urine Nitrite (Auto) Negative 10/23/22 15:10 Urine Bilirubin (Auto) 0 mg/dL 10/23/22 15:10 Urine Urobilinogen (Auto) 0.2 mg/dL 10/23/22 15:10 Leukocyte Esterase (Auto) 0 Rasta/uL 10/23/22 15:10 Assessment and Plan Assessment & Plan (1) Blood in urine: Code(s): R31.9 - Hematuria, unspecified (2) Back pain: Code(s): M54.9 - Dorsalgia, unspecified (3) Frequency of urination: Code(s): R35.0 - Frequency of micturition (4) Dysuria: Code(s): R30.0 - Dysuria Plan Patient is a 57-year-old female who came in today to be evaluated for urinary tract infection Patient says that her symptoms started over the weekend and got worse on Friday when she was evaluated in [facility] She was treated with Macrobid for 5 days they did send in culture patient says that the culture is not back yet but she will call them so they can send the report to me. Patient says that she is still having same symptoms of frequency and urgency We did the urinalysis today which shows blood but no signs of other abnormalities She is also having discomfort right costovertebral angle. There is no history of renal calculi I am changing the antibiotic to Levaquin 500 mg 1 daily for 5 days I have also ordered ultrasound of her kidneys. Orders: Orders US renal BI Today M54.9 - Dorsalgia, unspecified, R31.9 - Hematuria, unspecified AMB Urinalysis Automated Today Z13.9 - Encounter for screening, unspecified Medications: New levofloxacin 500 mg PO DAILY 5 tabs 0RF 5 days Coding Level of Care Code Est Pt Level 3 (05196) Diagnoses Blood in urine R31.9 Back pain M54.9 Frequency of urination R35.0 Dysuria R30.0
== END 2022-10-23 15:18 | disposition home or self-care (01) ==
PROVIDERS: PCP Internal Medicine; Visit Provider Internal Medicine
DX: R31.9 Hematuria, unspecified (principal); M54.9 Dorsalgia, unspecified; R35.0 Frequency of micturition; R30.0 Dysuria
CPT/HCPCS: 81003; 99213

== ENCOUNTER 2022-10-25 14:34 | Outpatient (REF) | payer BC, SELFPAY ==
--- NOTE | ~2022-10-25 | US_ITS ---
EXAMINATION: US RETROPERITONEAL LIMITED (RENAL ONLY) CLINICAL INFORMATION: Hematuria, unspecified. COMPARISON: CT abdomen and pelvis 05/22/2021. TECHNIQUE: Real-time imaging of the kidneys. Technically limited study secondary to bowel gas. FINDINGS: RIGHT KIDNEY: 9.5 x 5.6 x 5.4 cm (SAG x AP x TRV). The kidney is normal in size, contour, and echogenicity. Renal cortical thickness is normal. No calculi or focal parenchymal lesions. No hydronephrosis. LEFT KIDNEY: 11.0 x 5.7 x 5.8 cm (SAG x AP x TRV). The kidney is normal in size, contour, and echogenicity. Renal cortical thickness is normal. No calculi or focal parenchymal lesions. No hydronephrosis. Partially imaged liver appears echogenic suggestive of hepatic steatosis or underlying liver disease. US/US renal BI IMPRESSION: No hydronephrosis or nephrolithiasis. Partially imaged liver appears echogenic suggestive of hepatic steatosis or underlying liver disease. This could be further characterized with a dedicated right upper quadrant ultrasound if clinically indicated.
== END 2022-10-25 14:35 | disposition home or self-care (01) ==
LOC: HO.HMGCX 14:34
PROVIDERS: PCP Internal Medicine; Visit Provider Internal Medicine
DX: R31.9 Hematuria, unspecified (principal); M54.9 Dorsalgia, unspecified
CPT/HCPCS: 76775

== ENCOUNTER 2022-11-07 11:23 | Outpatient (REF) | payer BC, SELFPAY ==
--- NOTE | ~2022-11-07 | US_ITS ---
EXAMINATION: US ABDOMEN LIMITED CLINICAL INFORMATION: Abnormal results of liver function studies. COMPARISON: Renal ultrasound 10/25/2022. CT abdomen and pelvis 05/22/2021. Ultrasound abdomen 03/25/2010. TECHNIQUE: Real-time imaging of the right upper quadrant abdominal viscera. Technically difficult study secondary to bowel gas. FINDINGS: PANCREAS: The visualized pancreatic head and body are grossly unremarkable. The tail is largely obscured by overlying bowel gas. LIVER: The liver is normal in size. The liver contour is normal. Increased hepatic parenchymal echogenicity. No focal hepatic lesion. There is no intrahepatic biliary duct dilatation seen. GALLBLADDER: Surgically absent. COMMON BILE DUCT: Normal in caliber measuring 0.5 cm in diameter. RIGHT KIDNEY: Normal. No hydronephrosis. No renal calculi or focal parenchymal lesions. The kidney measures 10.5 cm in maximum dimension. FREE FLUID: None. US/US abdomen limited IMPRESSION: Increased hepatic parenchymal echogenicity, which can be seen in the setting of fatty infiltration. Underlying hepatocellular disease cannot be excluded. No hepatic parenchymal lesion or biliary ductal dilatation.
== END 2022-11-07 11:24 | disposition home or self-care (01) ==
LOC: HO.HMGCX 11:23
PROVIDERS: PCP Internal Medicine; Visit Provider Internal Medicine
DX: R94.5 Abnormal results of liver function studies (principal)
CPT/HCPCS: 76705

== ENCOUNTER 2022-11-12 13:11 | Outpatient (AMB) | payer OTHER, BC, SELFPAY ==
--- NOTE | 2022-11-12 11:34 | MHC.OFFVIS ---
Intake Vital Signs 11/12/22 13:40 Height 5 ft 2 in Weight 182 lb BMI 33.3 Intake Visit Reasons: O/V left thumb follow up Intake Note: Dalia 57 yr old female presents today for her follow up visit for her Left Basal joint arthritis, S/P injection Date of last Injection 02/06/22. States she is still having pain with lifting, pinching and grabbing. States injection did not last very long. Also states she cont's to have numbness and tingling. EMG done 06/2022 with results stating no evidence of carpal tunnel . Allergies aspirin [ASPIRIN] Allergy (Unknown, Verified 11/12/22 13:42) NAUSEA & VOMITING meperidine [From DEMEROL] Allergy (Unknown, Verified 11/12/22 13:42) UNKNOWN ibuprofen [IBUPROFEN] Adverse Reaction (Unknown, Verified 11/12/22 13:42) NAUSEA & VOMITING Medication List - Last Reconciled 11/12/22 by Bobbi Moran RN acetaminophen (Tylenol Extra Strength) 500 mg PO Q6H PRN levofloxacin 500 mg PO DAILY 5 days HPI O/V left thumb follow up HPI Details Dalia is a 57 year old right hand dominant woman who presents to discuss her left basal joint arthritis She received a left Basal joint injection on 02/06/22, with good relief, though she says this did not last as long as she was hoping.? She complains of sharp pain at the base of her thumbs, along with some tingling. Her pain is worse with pinching and gripping activities. She says the dull aching pain has improved and all her pain is now sharp. She says recently she was unable to pull up her socks due to her pain when trying to pinch them. She finds some relief from icing her hands. She says she cannot take NSAIDs due to GI upset. 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 She made no mention of numbness today in clinic [facility] Medical History Personal history of nicotine dependence COPD (chronic obstructive pulmonary disease) Nocturnal hypoxemia Smoker Surgical History History of cholecystectomy (~2010) History of kidney surgery History of tonsillectomy Family History Father Atrial fibrillation Diabetes Enlarged prostate Dementia Brother Atrial fibrillation Mother Dementia Breast cancer Social History Housing: House Alcohol intake: current Alcohol intake frequency: does not drink Patient Tobacco Use Status: Current everyday Tobacco user Tobacco use type: Cigarette Cigarette Packs Per Day: 1 Cigarettes Per Day: 20 Years Smoked: onset 17, 1ppd x 38yrs - 38pyh e-Cigarette/Vaping Use: Never Used service: No Current occupational status: employed 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 Cognitive needs: No Hearing needs: No Vision needs: Yes Review of Systems Const All systems reviewed & are unremarkable except as noted in HPI and below Physical Exam Vital Signs: BMI result Body Mass Index 33.3 Const General: no acute distress and alert Orientation/consciousness: patient oriented x3 Neuro General: patient oriented x3 Extrem Other: Evaluation of Left Upper Extremity: The patient is alert, oriented, and in no acute distress Vascular: Cap refill brisk ROM: She can bring bring all the digits of her right hand closed to a fist and back into extension We worked on ROM exercises today in clinic Most tender over the basal joint of the left thumb + Shoulder sign No tenderness over the MCP joint or 1st dorsal compartment Mild swelling of the right ring finger PIP joint. She denies any injury slight passive flexion contracture of the PIP Joint, with early mild boutonniere deformity Nerve Conduction Study: Impression: No evidence of carpal or cubital tunnel syndrome Normal EMG of the left C5-T1 innervated muscles Dr. Mi 06/26/22 Radiographs: 3 views of the left hand from 05/01/22 were reviewed by me today in clinic. They show some basal joint osteoarthritis, with joint space narrowing, subluxation, and early osteophyte formation. Psych Appearance: grossly normal Affect: normal affect Attitude: cooperative Office Procedures Fracture Care Details: No fracture, injection Fracture Billing Code: Fracture Billing Code Results Reviewed Results Reviewed: 11/12/22 14:14 Lidocaine HCl 1 % [Xylocaine 1 %] 2 ml .ROUTE .STK-MED ONE methylPREDNISolone acetate [DEPO-MedroL] 40 mg .ROUTE .STK-MED ONE Assessment & Plan Assessment & Plan (1) Arthritis of carpometacarpal (CMC) joint of left thumb: Code(s): M18.12 - Unilateral primary osteoarthritis of first carpometacarpal joint, left hand (2) Arthritis of carpometacarpal (CMC) joint of right thumb: Code(s): M18.11 - Unilateral primary osteoarthritis of first carpometacarpal joint, right hand (3) Numbness of right hand: Code(s): R20.0 - Anesthesia of skin (4) Boutonniere deformity of right finger(s): Code(s): M20.021 - Boutonniere deformity of right finger(s) Plan Assessment & plan: 1. Left Basal joint arthritis, S/P injection Date of Injection: 02/06/22 This is her chief complaint today. I educated her about this condition She complains her pain is sharp and constant with activity, but she has no dull aching pain. I recommend an injection, bracing, and activity modification. I discussed activity modification, she should limit or avoid any heavy or repetitive pinching or gripping activities She should work on gentle finger ROM exercises daily to minimize stiffness She should continue to wear her her comfort cool splint when symptomatic She was given a note to remain out of work until 11/14/22, as she did have pain for 2 days following her last injection. Injection #1 : The risks and benefits of a steroid injection including but not limited to risk of damage to blood vessels, nerve, tendon, infection, skin bleaching, persistent or worsening pain, and failure to improve symptoms were discussed with the patient and they wish to proceed with the steroid injection. Once consent was obtained the skin over the dorsum of the left basal joint was sterilely prepped. The joint was then injected with a combination of 1 mL of (40 mg/ml} Depo-Medrol and 1% plain Lidocaine. The patient appears to have tolerated the procedure well and with no complications. She had good early relief before leaving clinic today. She knows that they may not have another steroid injection into this joint for least 4 months. 2. Right Basal joint arthritis 3. Right hand numbness Primarily to the dorsal aspect of the hand NCS negative for peripheral neuropathy or cervical radiculopathy No intervention indicated 4. Right ring finger Boutonniere deformity, early & mild Etiology unclear Scribed for Billie Christian MD by Kyree Vaughn, medical billing supervisor, on 11/12/22 at 2:20 PM, EST. Coding Level of Care Code Est Pt Level 3 (83512) Diagnoses Arthritis of carpometacarpal (CMC) joint of left thumb M18.12 Arthritis of carpometacarpal (CMC) joint of right thumb M18.11 Numbness of right hand R20.0 Boutonniere deformity of right finger(s) M20.021 CPT Codes Fracture Care - Fracture Billing Code: Fracture Billing Code ([id number])
[2022-11-12 13:40] VITALS: BMI 33.3
== END 2022-11-12 14:32 | disposition home or self-care (01) ==
PROVIDERS: PCP Internal Medicine; Visit Provider Orthopaedic Surgery
DX: M18.0 Bilateral primary osteoarthritis of first carpometacarpal joints (principal); M20.021 Boutonniere deformity of right finger(s); R20.0 Anesthesia of skin; Z04.3 Encounter for examination and observation following other accident
CPT/HCPCS: 20600; 99213

== ENCOUNTER → 2022-11-12 13:11 | Outpatient (BNVA) | payer OTHER, BC, SELFPAY | PROVIDERS: PCP Internal Medicine; Visit Provider Orthopaedic Surgery | DX: M18.0 Bilateral primary osteoarthritis of first carpometacarpal joints (principal); M20.021 Boutonniere deformity of right finger(s); R20.0 Anesthesia of skin | CPT/HCPCS: 20600; 99212; J1020 ==

== ENCOUNTER 2023-04-10 15:30 | Outpatient (REF) | payer BC, SELFPAY ==
--- NOTE | ~2023-04-10 | CT_ITS ---
EXAMINATION: CT CHEST LOW-DOSE SCREENING WITHOUT CONTRAST HISTORY: Asymptomatic patient meeting criteria for lung screening. PATIENT PACK-YEAR HISTORY: Current Smoker: Yes If former smoker, years since quitting: COMPARISON: 02/02/2021 TECHNIQUE: Multidetector volumetric non-contrast CT imaging of the chest was performed using low dose screening CT technique. Axial thin section 0.625 mm reformations in soft tissue and lung windows were obtained. Sagittal and coronal reformations were obtained. Axial MIP images were also created and reviewed. RECONSTRUCTED WIDTH: 1.25 mm x 1.25 mm TOTAL EXAM DLP: 108 mGy-cm CTDIvol: 3.43 mGy FINDINGS: LUNGS: Mild centrilobular emphysema. No suspicious pulmonary nodule. No focal consolidation. Central airways are patent. PLEURA: No pleural effusion. LYMPH NODES: No bulky mediastinal, hilar or axillary lymphadenopathy. MEDIASTINUM: Great vessels are of normal caliber. Heart size is normal. No pericardial effusion. CORONARY ARTERY CALCIFICATIONS: None. CHEST WALL/BREASTS: No acute abnormality. UPPER ABDOMEN: This study was performed without contrast and with lower than standard dose, reducing the sensitivity for detection of small lesions in the upper abdomen. Hepatic steatosis. Status post cholecystectomy. No adrenal mass. OSSEOUS STRUCTURES: No destructive bone lesions. CT/CT lung screening IMPRESSION: No suspicious pulmonary nodule. LUNG-RADS CATEGORY ASSESSMENT: 2. Benign appearance or behavior. Nodules with a very low likelihood of becoming a clinically active cancer due to size or lack of growth. Continue annual screening with low-dose CT in 12 months. Probability of malignancy less than 1%. INCIDENTAL FINDINGS (S CATEGORY): Finding: No incidental findings. Significance category: Normal or normal variant. RECOMMENDATION: Low dose lung CT. overall in 1 year. Visual estimate of coronary calcified plaque burden: None. However, this exam cannot replace a dedicated cardiac CT calcium score for accurate assessment. LUNG-RADS CATEGORY: 2 -- BENIGN
== END 2023-04-10 15:31 | disposition home or self-care (01) ==
LOC: HO.CT 15:30
PROVIDERS: PCP Internal Medicine; Visit Provider Nurse Practitioner Family
DX: Z12.2 Encounter for screening for malignant neoplasm of respiratory organs (principal); F17.210 Nicotine dependence, cigarettes, uncomplicated
CPT/HCPCS: 71271

== ENCOUNTER 2024-04-12 08:42 | Outpatient (REF) | payer BC, SELFPAY ==
--- NOTE | ~2024-04-12 | CT_ITS ---
CLINICAL HISTORY: F17.210 - Nicotine dependence, cigarettes, uncomplicated CT lung cancer screening (LDCT) Comparison: CT/ME/SR - CT LUNG SCREENING - 04/10/23 15:52 EST Technique: Axial CT images of the chest using low-dose technique. Referring provider counseled the patient on shared decision-making for LDCT screening. Additional counseling was provided on smoking cessation. Effective radiation dose total: DLP 44.7 mGycm, CTDIvol 1.6 mGy. Findings: There are a few scattered 2 mm nodules for instance in the superior segment of the left lower lobe on images 33 and 36 of series number 6. These are unchanged. Calcified granuloma seen in the left lung apex. There is mild scarring at the lung apices. Coronary artery calcifications: None Limited upper abdomen: Unremarkable Other: None Impression: LungRADS 2 - Benign Appearance: Continue annual screening with low dose Chest CT in 12 months. ##L2# Category 1: Normal; continue annual screening Category 2: Benign appearance or behavior, continue annual screening Category 3: Probably benign, [address] recommended Category 4A: Suspicious, [address] recommended; may consider PET/CT Category 4B: Suspicious, Additional diagnostics and/or tissue sampling recommended Category 4X: Suspicious, Additional diagnostics and/or tissue sampling recommended Category 0: Recalls (incomplete screen due to Incomplete coverage, Noise, Respiratory motion, Expiration, Obscured by acute abnormality) This document has been electronically signed by: Quoc Lee MD on 04/13/2024 12:44:21
--- NOTE | ~2024-04-12 | XR_ITS ---
EXAMINATION: XR CHEST CLINICAL INFORMATION: R05.9 - Cough, unspecified COMPARISON: March 30, 2019. TECHNIQUE: 2 views of the chest were obtained. FINDINGS: Pulmonary reticular pattern. Linear opacity in the periphery of the left lower hemithorax. Bilateral apical lung scarring. There is a poor Inspiration. No consolidation, pleural effusion or pneumothorax. Cardiomediastinal silhouette size is normal. Multilevel thoracolumbar spondylosis. Vascular clips right upper quadrant abdomen. XR/XR chest 2V IMPRESSION: Chronic interstitial lung disease. Electronically signed by: Demetrio Connor MD 04/12/2024 10:34 AM [facility]RAM
--- OUTSIDE RECORDS SUMMARY | 2024-04-12 09:13 | XMS_ITS | Encounter Summary ---
Author Organization [facility] Address [id number] [place] [id number] Care Team Providers Care Fiberglass Boat Parts Finisher Name Role Phone Physician, No Pcp Primary Care Provider Unavaila ble Reason for Visit * Reason Comments Cough Cough, congestion Encounter Details Date Type Department Care Team ([facility] Contact Info) Description 04/07/2024 3:00 PM EST Office Visit Walk-In Clinic [id number] [place] [phone] Mike Reyes PA [address], [place] [id number] Influenza A (Primary Dx) Social History Tobacco Use Types Packs/Day Years Used Date Smoking Tobacco: Every Day Cigarettes Alcohol Use Standard Drinks/Week Comments Yes 0 (1 standard drink = 0.6 oz pur e alcohol) Comments Unknown Sex and Gender Information Value Date Recorded Sex Assigned at Not on file Legal Sex Female 2:54 AM EST Gender Identity Not on file Sexual Orientation Not on file documented as of this encounter Last Filed Vital Signs Vital Sign Reading Time Taken Comments Blood Pressure 102/67 04/07/2024 3:06 PM EST Pulse 96 04/07/2024 3:06 PM EST Temperature 36.7 ??C (98.1 ??F) 04/07/2024 3:06 PM ES T Respiratory Rate - - Oxygen Saturation 96% 04/07/2024 3:06 PM EST Inhaled Oxygen Concentration - - Weight - - Height - - Body Mass Index - - documented in this encounter Plan of Treatment Not on file documented as of this encounter Procedures Procedure Name Priority Date/Time Associated Diagnosis Comments POC RAPID [id number], MOLECULAR Routine 04/07/2024 5:53 PM EST Influenza A POC INFLUENZA A/B Routine 04/07/2024 5:5 3 PM EST Influenza A documented in this encounter Results * (ABNORMAL) POC Influenza A/B manually resulted (04/07/2024 5:53 PM EST) [facility] Rapid Influenza A AGN POC Positive(A) Negative Rapid Influenza B AGN POC Negative Negative Internal Control Pass Yes Yes Swab 04/07/2024 5:53 PM EST Mike LOCKHART POINT OF CARE TEST ENTER/E DIT ORDERABLES Final Result * Poc Rapid [id number], MOLECULAR (04/07/2024 5:53 PM EST) [facility] COVID-19/SARS- COV-2 Rapid POC Negative Negative Internal Control Pass Yes Yes Swab Nasopharyngeal structure / Unknown 04/07/2024 5:53 PM EST Mike LOCKHART POINT OF CARE TEST ENTER/E DIT ORDERABLES Final Result documented in this encounter Visit Diagnoses Diagnosis Influenza A- Primary Influenza with other respiratory manifestations documented in this encounter Care Teams Fiberglass Boat Parts Finisher Relationship Specialty Start Date End Date Physician, No Pcp PCP - General 04/07/24 documented as of this encounter
--- OUTSIDE RECORDS SUMMARY | 2024-04-12 09:13 | XMS_ITS | Clinical Summary ---
Author Organization [address] [place] [address] [place] [phone] Phone Care Team Providers Care Capacity Planning Analyst Name Role Phone Physician, No Pcp Primary Care Provider Unavaila ble Allergies Active Allergy Reactions Criticality Noted Date Comments Meperidine Hcl 05/24/2009 Propoxyphene Hcl 05/24/2009 Medications No known medications Encounters Date Type Department Care Team Description 04/07/2024 3:00 PM EST Office Visit Walk-In Clinic [address] [phone] Mike Reyes PA Influenza A (Primary Dx) from Last 3 Months Surgical History Surgery Date Site/Laterality Comments TONSILLECTOMY PROCEDURE: HISTORICAL TONSILLECTOMY OTHER SURGICAL HISTORY PROCEDURE: [place] URETERORRHAPHY SUTURE URETER SEPARATE PROCEDURE; COMMENT: uncertain procedure as a child CHOLECYSTECTOMY 2010 PROCEDURE: LAPAROSCOPY, CHOLECYSTECTOMY; COMMENT: gallstones Family History Medical History Relation Name Comments Breast cancer Mother age 80 Breast cancer Sister 1 age 41 Relation Name Status Comments Mother Sister 1 Sister 2 Social History Tobacco Use Types Packs/Day Years Used Date Smoking Tobacco: Every Day Cigarettes Alcohol Use Standard Drinks/Week Comments Yes 0 (1 standard drink = 0.6 oz pur e alcohol) Comments Unknown Sex and Gender Information Value Date Recorded Sex Assigned at Not on file Legal Sex Female 2:54 AM EST Gender Identity Not on file Sexual Orientation Not on file Obstetrics History Last Filed Vital Signs Vital Sign Reading Time Taken Comments Blood Pressure 102/67 04/07/2024 3:06 PM EST Pulse 96 04/07/2024 3:06 PM EST Temperature 36.7 ??C (98.1 ??F) 04/07/2024 3:06 PM ES T Respiratory Rate - - Oxygen Saturation 96% 04/07/2024 3:06 PM EST Inhaled Oxygen Concentration - - Weight - - Height - - Body Mass Index - - Plan of Treatment Health Maintenance Due Date Last Done Comments Breast Cancer Screening 1964 Hepatitis B Vaccines (1 of 3 - 19+ 3-dose series) 09/01/1983 Pneumococcal Vaccine: 50+ Years (1 of 2 - PCV) 09/01/1983 Pneumococcal Vaccine: Pediatrics (0 to 5 Years) and At-Risk Patients (6 to 64 Years) (1 of 2 - PCV) 09/01/1983 Cervical Cancer Screening: P ap Smear 1985 Zoster Vaccines (1 of 2) 2014 COVID-19 Vaccine ( - 2023-2 5 season) 2023 06/26/2020, 05/29/2020 Influenza Vaccine (#1) 2023 Colorectal Cancer Screening: Colonoscopy 04/07/2024 Depression Screening 04/07/2024 HIV Screening 04/07/2024 Hepatitis C Screening 04/07/2024 Social Influencers of Health Screening 04/07/2024 DTaP,Tdap,and Td Vaccines (3 - Td or Tdap) 08/02/2026 08/02/2016, 09/03/2010 RSV Immunization Patients 60 + Years Old (1 - 1-dose 75+ series) 09/01/2039 HIB Vaccines Aged Out No longer eligi ble based on patient's age to complete this topic HPV Vaccines Aged Out No longer eligi ble based on patient's age to complete this topic Hepatitis A Vaccines Aged Out No long er eligible based on patient's age to complete this topic IPV Vaccines Aged Out No longer eligi ble based on patient's age to complete this topic MMR Vaccines Aged Out No longer eligi ble based on patient's age to complete this topic Meningococcal ACWY Vaccine Aged Out N o longer eligible based on patient's age to complete this topic Meningococcal B Vacine Aged Out No lo nger eligible based on patient's age to complete this topic RSV Immunization Patients Under 20 months Aged Out No longer eligible b ased on patient's age to complete this topic Varicella Vaccines Aged Out No longer eligible based on patient's age to complete this topic Procedures Procedure Name Priority Date/Time Associated Diagnosis Comments POC INFLUENZA A/B Routine 04/07/2024 5:5 3 PM EST Influenza A POC RAPID [id number], MOLECULAR Routine 04/07/2024 5:53 PM EST Influenza A from Last 3 Months Results * Poc Rapid [id number], MOLECULAR (04/07/2024 5:53 PM EST) [facility] COVID-19/SARS- COV-2 Rapid POC Negative Negative Internal Control Pass Yes Yes Swab Nasopharyngeal structure / Unknown 04/07/2024 5:53 PM EST Mike Reyes [place] POINT OF CARE TEST ENTER/E DIT ORDERABLES Final Result * (ABNORMAL) POC Influenza A/B manually resulted (04/07/2024 5:53 PM EST) [facility] Rapid Influenza A AGN POC Positive(A) Negative Rapid Influenza B AGN POC Negative Negative Internal Control Pass Yes Yes Swab 04/07/2024 5:53 PM EST Mike LOCKHART POINT OF CARE TEST ENTER/E DIT ORDERABLES Final Result from Last 3 Months Additional Health Concerns Infection Onset Date Last Indicated Influenza 04/07/2024 04/07/2024 Insurance Care Teams Capacity Planning Analyst Relationship Specialty Start Date End Date Physician, No Pcp PCP - General 04/07/24
--- OUTSIDE RECORDS SUMMARY | 2024-04-12 09:13 | XMS_ITS | Clinical Summary ---
Author Organization [facility] [employer] [facility] Address [address] [place] [address] Care Team Providers Care Rotary Swaging Machine Operator Name Role Phone Pcp, No Primary Care Provider [phone] Social History Tobacco Use Types Packs/Day Years Used Date Smoking Tobacco: Never Assessed Comments Unknown Sex and Gender Information Value Date Recorded Sex Assigned at Not on file Legal Sex Female 5:07 PM EDT Gender Identity Not on file Sexual Orientation Not on file Plan of Treatment Health Maintenance Due Date Last Done Comments Colorectal Cancer: COLONOSCO PY Screening every 10 yrs (or Modifier) 1964 Depression: Screening Annual ly using PHQ-2/9 in Adults 18 yrs or above (or HM Modifier)([facility]) 1982 Hepatitis C Virus Infection in Adolescents and Adults: Screening (or Modifier) ([facility]) 1982 [facility] Screening Reminder: Ericka aguilar for all adults ([facility]) 1982 Tobacco Smoking Cessation: i n Adults excluding Women: Behavioral and Pharmacotherapy Interventions ([facility]) 1982 DTaP/Tdap/Td Vaccines ([facility]) (1 - Tdap) 09/01/1983 Cervical Cancer Screenin 1-65 yrs of age (or Modifier) 1985 Cervical Cancer Screening: P ap every 3 yrs pts age 21-65 1985 Cervical Cancer: Pap Screeni ng with Modifier timing ([facility]) 1985 Cervical Cancer: hrHPV alone or with cotesting Pap for Pts 30-65yrs screening every 5yrs ([facility]) 1985 Colorectal Cancer Screening 45 -75 Yrs (or HM Modifier) 2009 Colorectal Cancer: FLEXIBLE SIGMOIDOSCOPY Screening every 5 yrs 2009 Colorectal Cancer: Fecal Immunochemical Test (FIT) Annually [facility] 2009 Colorectal Cancer: High-sens itivity gFOBT Screening Annually [facility] 2009 Colorectal Cancer: Stool Col oguard Screening every 3 yrs 2009 Colorectal Cancer:CT Colonog brittney Screening every 5 yrs 2009 Lipid Screening: Every 5 yrs for Women aged 45+ (or HM Modifier) ([facility]) 2010 Breast Cancer: Screening Ericka ually age 50-74 yrs (or HM Modifier)([facility]) 2014 Zoster/Shingles Vaccine Seri es Screening: Adults aged 18+ yrs (or HM Modifiers)([facility]) (1 of 2) 2014 Flu Vaccination: Yearly for ages 18mos through 64 years (or Modifier)([facility]) 09/18/2023 COVID-19 Vaccine Screening: Initial Series and Booster Status ([facility]) (2023- season) 2023 Pneumococcal Vaccination Scr eening: Pts 0-19 & 19-64 yrs of age ([facility]) Aged Out No longer eligible based on patient's age to complete this topic Medical Devices Not on file Insurance [facility] Care Teams Rotary Swaging Machine Operator Relationship Specialty Start Date End Date Pcp, No PCP - General Family Medicine 06/02/20
== END 2024-04-12 08:43 | disposition home or self-care (01) ==
LOC: HO.CT 08:42
PROVIDERS: PCP Internal Medicine; Visit Provider Physician Assistant Medical
DX: Z12.2 Encounter for screening for malignant neoplasm of respiratory organs (principal); F17.210 Nicotine dependence, cigarettes, uncomplicated; R05.9 Cough, unspecified
CPT/HCPCS: 71046; 71271

== ENCOUNTER 2024-04-12 09:15 | Outpatient (AMB) | payer BC, SELFPAY ==
--- OUTSIDE RECORDS SUMMARY | 2024-04-12 09:53 | XMS_ITS | Clinical Summary ---
Author Organization [address] [place] [address] [place] [phone] Phone Care Team Providers Care Tank Erector Name Role Phone Physician, No Pcp Primary Care Provider Unavaila ble Allergies Active Allergy Reactions Criticality Noted Date Comments Meperidine Hcl 05/24/2009 Propoxyphene Hcl 05/24/2009 Medications No known medications Encounters Date Type Department Care Team Description 04/07/2024 3:00 PM EST Office Visit Walk-In Clinic [address] [phone] Mike Reyes PA Influenza A (Primary Dx) from Last 3 Months Surgical History Surgery Date Site/Laterality Comments TONSILLECTOMY PROCEDURE: HISTORICAL TONSILLECTOMY OTHER SURGICAL HISTORY PROCEDURE: ME URETERORRHAPHY SUTURE URETER SEPARATE PROCEDURE; COMMENT: uncertain [...] 3 PM EST Influenza A POC RAPID [id number], MOLECULAR Routine 04/07/2024 5:53 PM EST Influenza A from Last 3 Months Results * Poc Rapid [id number], MOLECULAR (04/07/2024 5:53 PM EST) [facility] COVID-19/SARS- COV-2 Rapid POC Negative Negative Internal Control Pass Yes Yes Swab Nasopharyngeal structure / Unknown 04/07/2024 5:53 PM EST Mike Reyes [place] POINT OF CARE TEST ENTER/E DIT ORDERABLES Final Result * (ABNORMAL) POC Influenza A/B manually resulted (04/07/2024 5:53 PM EST) [facility] Rapid Influenza A AGN POC Positive(A) Negative Rapid Influenza B AGN POC Negative Negative Internal Control Pass Yes Yes Swab 04/07/2024 5:53 PM EST Mike LOCKHART POINT OF CARE TEST ENTER/E DIT ORDERABLES Final Result from Last 3 Months Additional Health Concerns Infection Onset Date Last Indicated Influenza 04/07/2024 04/07/2024 Insurance Care Teams Tank Erector Relationship Specialty Start Date End Date Physician, No Pcp PCP - General 04/07/24
--- OUTSIDE RECORDS SUMMARY | 2024-04-12 09:53 | XMS_ITS | Clinical Summary ---
Author Organization [facility] [employer] [facility] Address [address] [place] [address] Care Team Providers Care Assignment Clerk Name Role Phone Pcp, No Primary Care Provider Social History Tobacco Use Types Packs/Day Years [...] Adults 18 yrs or above (or HM Modifier)([facility]) 1982 Hepatitis C Virus Infection in Adolescents and Adults: Screening (or Modifier) ([facility]) 1982 [facility] Screening Reminder: Ericka aguilar for all adults ([facility]) 1982 Tobacco Smoking Cessation: i n Adults excluding Women: Behavioral and Pharmacotherapy Interventions ([facility]) 1982 DTaP/Tdap/Td Vaccines ([facility]) (1 - Tdap) 09/01/1983 Cervical Cancer Screenin 1-65 yrs of age (or Modifier) 1985 Cervical Cancer Screening: P ap every 3 yrs pts age 21-65 1985 Cervical Cancer: Pap Screeni ng with Modifier timing ([facility]) 1985 Cervical Cancer: hrHPV alone or with cotesting Pap for Pts 30-65yrs screening every 5yrs ([facility]) 1985 Colorectal Cancer Screening 45 -75 Yrs (or HM Modifier) 2009 Colorectal Cancer: FLEXIBLE SIGMOIDOSCOPY Screening every 5 yrs 2009 Colorectal Cancer: Fecal Immunochemical Test (FIT) Annually [facility] 2009 Colorectal Cancer: High-sens itivity gFOBT Screening Annually [facility] 2009 Colorectal Cancer: Stool Col oguard Screening every 3 yrs 2009 Colorectal Cancer:CT Colonog brittney Screening every 5 yrs 2009 Lipid Screening: Every 5 yrs for Women aged 45+ (or HM Modifier) ([facility]) 2010 Breast Cancer: Screening Ericka ually age 50-74 yrs (or HM Modifier)([facility]) 2014 Zoster/Shingles Vaccine Seri es Screening: Adults aged 18+ yrs (or HM Modifiers)([facility]) (1 of 2) 2014 Flu Vaccination: Yearly for ages 18mos through 64 years (or Modifier)([facility]) 09/18/2023 COVID-19 Vaccine Screening: Initial Series and Booster Status ([facility]) (2023- season) 2023 Pneumococcal Vaccination Scr eening: Pts 0-19 & 19-64 yrs of age ([facility]) Aged Out No longer eligible based on patient's age to complete this topic Medical Devices Not on file Insurance [facility] Care Teams Assignment Clerk Relationship Specialty Start Date End Date Pcp, No PCP - General Family Medicine 06/02/20
--- OUTSIDE RECORDS SUMMARY | 2024-04-12 09:53 | XMS_ITS | Data Portability ---
Author Organization R[facility] Ann [facility], [address] Address [address] [place] [address] Care Team Providers Care Clinical Laboratory Technician Name Role Phone ROBERT WOODY Primary Care Provider [phone] Assessment Encounter Date Assessment Date Assessment LastModified by Organization Details LastModified Time 07/09/2023 07/09/2023 Acute bronchitis is a common clinical condition characterized by an acute onset but persistent cough, with or without sputum production. It is typically self-limited, resolving within one to three weeks. Symptoms result from inflammation of the lower respiratory tract and are most frequently due to viral infection. Treatment is focused on patient education and supportive care. Antibiotics are not needed for the great majority of patients with acute bronchitis but are greatly overused for this condition. Reducing antibiotic use for acute bronchitis is a national and international health care priority. In most patients, the cough persists for 1 to 3 weeks, with a average duration of 18 days. The cough may be associated with either purulent or nonpurulent sputum production The presence of purulent sputum is a nonspecific finding and does not appear to be predictive of bacterial infection or that antibiotics are needed. For the great majority of patients, use of antibiotics does not hasten recovery or prevent complications but puts patients at increased risk of adverse effects including potentially severe complications such as Clostridioides difficile infection and anaphylaxis. Non-Pharmacological treatment for coughin. Throat lozenges 2. Hot tea 3. Honey 4. Smoking cessation 5. Avoidance of secondhand smoke. Pharmacological Treatment: 1. Robatussin or Guafenasin 2. Antihistamines 3. Dextromethoraphen I would plan on being seen again if any of the following symptoms develop: 1. Fever (100.5) 2. Shortness of breath 3. Wheezing 4. Worsening Cough. I would go to the ER if you develop: 1. Severe Shortness of breath 2. Chest Pain 3. Wheezing 4. Coughing up Blood [email or web address] Not available 07/09/2023 20:06:30 Plan of Treatment Reminders Order Date Submit Date Provider Last Modified By Organization Details Last Modified Time Details Appointments None recorded. Lab rapid flu (A+B) 2023 024 ZOFIA [facility] [address], [address] [place], [address], 4 13:09:24 urinalysis, dipstick 2022 023 fimaral [facility] [address], [address] [place], [address], 3 15:53:20 culture, urine 2022 023 [place] [facility], [address] [place] [address], [place], [address], 3 06:07:26 Referral None recorded. Procedures None recorded. Surgeries None recorded. Imaging XR, chest, 2 view [facility]23 [facility], [address] [place], [address], 19:49:57 Medication Orders Claritin-D 12 Hour 5 mg-120 mg tablet,exte nded release 2023 [id number], [address], [place], [id number], 4 19:48:44 albuterol sulfate HFA 90 mcg/actuati on aerosol inhaler 2023 [facility] #08402, [address], [place], [id number], 4 19:48:45 benzonatate 200 mg capsule 2023 024 [facility] #34972, [address], [place], [id number], 19:48:44 amoxicillin 875 mg-potmaci m clavulanate 125 mg tablet 2023 024 [facility] #60543, [address], [place], [id number], 12:52:30 Macrobid 100 mg capsule 2022 023 [facility] #96142, [address], [place], [id number], 12:43:14 Patient TargetsNo targets recorded. Patient Instructions Encounter Date Encounter Id Patient Instructions Last Modified By Organization Details Last Modified Time 10/20/2022 [id number] We recommend you get a repeat urinalysis in 2 weeks to ensure that any abnormalities have resolved. If urine abnormalities persist, you will likely need further testing or treatment. We will contact you within 3 to 5 days with the results of your lab test. If you have not heard back from us within that time frame, please feel free to contact our office regarding your results. Go to the Emergency Department immediately if your symptoms worsen or if you develop new symptoms that concern you. Drink plenty of fluids You should follow-up with your PCP in 4-5 days, or at any time if your condition does not improve or worsens. Any acute change should prompt a visit to the nearest Emergency Department. [email or web address] Not available 10/20/2022 15:43:10 07/09/2023 [id number] cough: care instructions ronchaga Not available 07/09/2023 19:03:42 upper respirator y infection (cold): care instructions ronchaga Not available 07/09/2023 19:48:36 bronchitis: care instructions ronchaga Not available 07/09/2023 19:48:36 Reason for Referral None Reported. Results Created Date Observation Date Name Description Value Unit Range Abnormal Flag Note LastModifiedBy Organization Detail LastModifiedTime 10/21/19 23 10/24/2022 URINE CULTU RE, ROUTI NE urine culture, routine FINAL REPORT abnormal Not Available [facility] ([facility]) [address] [facility], [place], [address], 10/24/2022 10:06:46 10/21/19 23 10/24/2022 URINE CULTU RE, ROUTI NE result 1 ESCHER ICHIA COLI abnormal Cefaz gama <=4 ug/mL Cefaz gama with an CHRISTOS <=16 predi cts susce ptibi lity to the oral agent s cefac devang, cefdi sonido, cefpo doxim e, cefpr ozil, cefur oxime , cepha lexin , and lorac arbef when used for thera py of uncom plica johanna urina ry tract infec tions due to E. coli, Klebs iella pneum oniae , and Prote us mirab ilis. 50,00 0-100 ,000 colon y formi ng units per mL Not Available [facility] ([facility]) [address] [facility], [place], [address], 10/24/2022 10:06:46 10/21/19 23 10/24/2022 URINE CULTU RE, ROUTI NE antimicrobia l susceptibili ty COMMEN T S = Susce ptibl e; I = Inter media te; R = Resis tant P = Posit yousuf; N = Negat yousuf MICS are expre ssed in micro grams per mL Antib iotic RSLT# 1 RSLT# 2 RSLT# 3 RSLT# 4 Amoxi cilli n/Cla vulan ic Acid S Ampic illin S Cefep hunter S Ceftr iaxon e S Cefur oxime S Cipro floxa jazzmine S Ertap enem S Genta micin S Imipe nem S Levof loxac in S Merop enem S Nitro furan toin S Piper acill in/Ta zobac cast S Tetra cycli ne S Tobra mycin S Trime thopr im/Osorio lfa S Not Available [facility] ([facility]) [address] [facility], [place], [address], 10/24/2022 10:06:46 10/21/19 23 10/20/2022 urina lysis , dipst ick Unknown Analyte Normal = light yellow Not Available [facility] [place], [address], 10/20/2022 15:39:48 10/21/19 23 10/20/2022 urina lysis , dipst ick Unknown Analyte Yellow Not Available [id number] [place] [address] [address] [place], [address], 10/20/2022 15:39:48 10/21/1910/20/2022 urina lysis , dipst ick Unknown Analyte Normal = clear Not Available [address] [place], [address], 10/20/2022 15:39:48 10/21/1910/20/2022 urina lysis , dipst ick Unknown Analyte Cloudy Not Available [id number] [place] [address] [address] [place], [address], 10/20/2022 15:39:48 10/21/1910/20/2022 urina lysis , dipst ick Unknown Analyte Normal = negati ve Not Available [address] [place], [address], 10/20/2022 15:39:48 10/21/1910/20/2022 urina lysis , dipst ick Unknown Analyte Negati ve Not Available [address] [place], [address], 10/20/2022 15:39:48 10/21/1910/20/2022 urina lysis , dipst ick Unknown Analyte Normal = Negati ve Not Available [address] [place], [address], 10/20/2022 15:39:48 10/21/19 23 10/20/2022 urina lysis , dipst ick Unknown Analyte Negati ve Not Available [address] [place], [address], 10/20/2022 15:39:48 10/21/1910/20/2022 urina lysis , dipst ick Unknown Analyte Normal = Negati ve Not Available [address] [place], [address], 10/20/2022 15:39:48 10/21/1910/20/2022 urina lysis , dipst ick Unknown Analyte Negati ve Not Available [address] [place], [address], 10/20/2022 15:39:48 10/21/1910/20/2022 urina lysis , dipst ick Unknown Analyte Normal = 1.010, 1.015, 1.020 Not Available [facility] [address] [place], [address], 10/20/2022 15:39:48 10/21/1910/20/2022 urina lysis , dipst ick Unknown Analyte 1.030 Not Available [facility] [address] [place], [address], 10/20/2022 15:39:48 10/21/1910/20/2022 urina lysis , dipst ick Unknown Analyte Normal = Negati ve Not Available [address] [place], [address], 10/20/2022 15:39:48 10/21/1910/20/2022 urina lysis , dipst ick Unknown Analyte Trace- intact Not Available [facility] [place], [address], 10/20/2022 15:39:48 10/21/1910/20/2022 urina lysis , dipst ick Unknown Analyte Normal = 6.5, 7.0, 7.5, 8.0 Not Available [address] [place], [address], 10/20/2022 15:39:48 10/21/1910/20/2022 urina lysis , dipst ick Unknown Analyte 6.0 Not Available [facility] [address] [place], [address], 10/20/2022 15:39:48 10/21/1910/20/2022 urina lysis , dipst ick Unknown Analyte Normal = Negati ve Not Available [address] [place], [address], 10/20/2022 15:39:48 10/21/1910/20/2022 urina lysis , dipst ick Unknown Analyte 30 mg/dL Not Available [address] [place], [address], 10/20/2022 15:39:48 10/21/1910/20/2022 urina lysis , dipst ick Unknown Analyte Normal = 0.2, 1.0 Not Available [address] [place], [address], 10/20/2022 15:39:48 10/21/1910/20/2022 urina lysis , dipst ick Unknown Analyte 0.2 E.U./d L Not Available [address] [place], [address], 10/20/2022 15:39:48 10/21/19 23 10/20/2022 urina lysis , dipst ick Unknown Analyte Normal = Negati ve Not Available [address] [place], [address], 10/20/2022 15:39:48 10/21/19 23 10/20/2022 urina lysis , dipst ick Unknown Analyte Positi ve Not Available [address] [place], [address], 10/20/2022 15:39:48 10/21/1910/20/2022 urina lysis , dipst ick Unknown Analyte Normal = Negati ve Not Available [address] [place], [address], 10/20/2022 15:39:48 10/21/1910/20/2022 urina lysis , dipst ick Unknown Analyte Small Not Available [facility] [address] [place], [address], 10/20/2022 15:39:48 07/13/19 24 07/13/2023 rapid flu (A+B) Unknown Analyte negati ve Not Available [address] [place], [address], 07/09/2023 18:53:03 07/13/19 24 07/13/2023 rapid flu (A+B) Unknown Analyte negati ve Not Available [facility] [address] [place], [address], 07/09/2023 18:53:03 07/13/19 24 07/13/2023 rapid flu (A+B) Unknown Analyte yes Not Available [facility] [address] [place], [address], 07/09/2023 18:53:03 07/09/19 24 07/09/2023 XR, chest , 2 view No observ ation record ed. sara [facility] [address] [place], [address], 07/09/2023 20:08:40 Result Notes None recorded. Problems Name Problem SNOMED Code Status Onset Date Resolution Date Notes Provider Name and Address Organization Details Recorded Time Kidney disease 02566545 Active 023 JOSE DRINKKRYSTALE null, PA - [facility] 3 15:34:22 Arthritis 5679208 Active 023 JOSE DRINKKRYSTALE null, PA - [facility] 3 15:34:52 Cough 74858936 Active 024 LONG KAM NP [address] , [place], [address], [place] - [facility] 4 19:03:04 Acute bronchitis 81636489 Active 024 LONG KAM NP [address] , [place], [address], [place] PA - [facility] 4 19:46:16 Upper respiratory infection 73334654 Active 024 LONG KAM NP [address] , [place], [address], [place] PA - [facility] 4 19:47:54 Problem Notes None recorded. Procedures Surgical History Date Name Laterality Status Provider Name and Address Organization Details Recorded Time cholecystectomy completed Augusta Stanley PA - [facility] 03/08/2023 12:44:54 procedure on kidney completed JOSE VEE PA - [facility] 10/20/2022 15:34:32 Imaging Results Imaging Date Name Status LastModified by Organiz ation Details LastModified Time 07/09/2023 XR, chest, 2 view completed sara [facility] [address] [place], [address], 07/09/2023 20:08:40 Procedure Notes None recorded. Medical Equipment None Reported. Allergies Allergen ID Allergen Name Allergen Category Reaction Reaction Severity Criticality Documentation Date Start Date Code Code System Note Provider Name and Address Organization Details Recorded Time 103350 Demerol medicatio n hallucina tions Not available Not available 10/20/2022 79573 1 RxNorm JOSE DRINKWINE null, PA - [facility] 3 15:33:30 309632 propoxyph sheela hydrochlo ride medicatio n hallucina tions Not available Not available 10/20/2022 73326 RxNorm JOSE DRINKWINE null, PA - [facility] 3 15:33:45 719316 aspirin medicatio n Not available Not available Not available 03/08/2023 1191 RxNorm Augusta Stanley null, PA - [facility] 4 12:43:02 Medications Name Sig Start Date Stop Date Status Note LastModified by Organization Details LastModified Time amoxicillin 500 mg capsule TAKE 1 CAPSULE BY MOUTH 3 TIMES A DAY FOR 7 DAYS 07/08 completed Not Available Not Available Not Available benzonatate 200 mg capsule Take 1 capsule 3 times a day by oral route. 2023 active Not Available Not Available Not Avai lable meloxicam 15 mg tablet TAKE 1 TABLET BY MOUTH EVERY DAY 10/20 completed Not Available Not Available Not Available Claritin-D 12 Hour 5 mg-120 mg tablet,exte nded release Take 1 tablet every 12 hours by oral route for 5 days. 2023 active Not Available Not Available Not Avai lable levofloxaci n 500 mg tablet TAKE 1 TABLET BY MOUTH EVERY DAY FOR 5 DAYS 03/08 completed Not Available Not Available Not Available albuterol sulfate HFA 90 mcg/actuati on aerosol inhaler Inhale 2 puffs every 4 hours by inhalatio n route. 2023 active Not Available Not Available Not Avai lable amoxicillin 875 mg-potassiu m clavulanate 125 mg tablet TAKE 1 TABLET BY MOUTH EVERY 12 HOURS FOR 10 DAYS active Not Available Not Available No t Available nitrofurant oin monohydrate /macrocryst als 100 mg capsule TAKE 1 CAPSULE BY MOUTH EVERY 12 HOURS WITH MEALS FOR 7 DAYS 03/08 completed Not Available Not Available Not Available chlorhexidi ne gluconate 0.12 % mouthwash active Not Available Not Available No t Available calcium active Not Available Not Avail able Not Available Multi Vitamin active Not Available Not Available Not Available Vitals Date Recorded Body height Body mass index (BMI) Body weight Pain severity - 0-10 verbal numeric rating [Score] - Reported Body temperature Respiratory rate Heart rate Oxygen saturation Oxygen saturation in Arterial blood by Pulse oximetry Systolic blood pressure Diastolic blood pressure Provider Name and Address Organization Details Last Updated DateTime 3 162.56 cm 31.4 kg/m2 00004.4 g 5 97.7 [degF] 16 /min 82 /min 97 % 97 % 110 mm[Hg] 62 mm[Hg] JOSE VEE [facility] 3 15:39:15 Date Recorded Body height Body mass index (BMI) Body weight Pain severity - 0-10 verbal numeric rating [Score] - Reported Respiratory rate Body temperature Oxygen saturation Oxygen saturation in Arterial blood by Pulse oximetry Heart rate Systolic blood pressure Diastolic blood pressure Provider Name and Address Organization Details Last Updated DateTime 4 162.56 cm 31.8 kg/m2 71829.5 9 g 4 18 /min 98.5 [degF] 96 % 96 % 75 /min 108 mm[Hg] 78 mm[Hg] Augusta Stanley [place] [facility] 4 12:42:46 Date Recorded Body height Body mass index (BMI) Body weight Body temperature Respiratory rate Heart rate Oxygen saturation Oxygen saturation in Arterial blood by Pulse oximetry Systolic blood pressure Diastolic blood pressure Provider Name and Address Organization Details Last Updated DateTime 4 162.56 cm 31.8 kg/m2 45809.5 9 g 97.8 [degF] 16 /min 88 /min 98 % 98 % 92 mm[Hg] 60 mm[Hg] Katherine Hernandez [place] [facility] 4 18:52:29 Social History Question Answer Notes LastModified by Organizat ion Details LastModified Time Tobacco Smoking Status Current Every Day Smoker JOSE porter [place] [facility] 10/20/2022 15:36:08 What Is Your Level Of Alcohol Consumption? None Information not available 03/08/2023 Have You Had A Flu Shot This Season? No Information not available 03/08/2023 If No, Would You Like A Flu Shot Today? No Information not available 03/08/2023 Have You Had Direct Contact, Or Contact During Intimacy, With Monkeypox Rash, Scabs, Or Body Fluids From A Person With Monkeypox? No Information not available 03/08/2023 What Was The Date Of Your Most Recent Tobacco Screening? 07/09/2023 [email or web address] Information not available 07/09/2023 How Much Tobacco Do You Smoke? 1 PPD Information not available 10/20/2022 Do You Use Any Illicit Or Recreational Drugs? No Information not available 10/20/2022 Have You Recently Traveled Abroad? No Information not available 10/20/2022 Do You Or Have You Ever Used Any Other Forms Of Tobacco Or Nicotine? No Information not available 10/20/2022 Sex: Unknown Functional Status None recorded. Mental Status None recorded. Family History Relationship Description Onset Age of this Age Resolved Age Notes LastModified by Organization Details LastModified Time Brother Malignant neoplastic disease [email or web address] Not available 10/20 15:35:19 Brother Diabetes mellitus [email or web address] Not available 10/20 15:35:31 Brother Atrial fibrillation [email or web address] Not available 15:35:45 Sister Malignant neoplastic disease [email or web address] Not available 10/20 15:35:19 Mother Malignant neoplastic disease [email or web address] Not available 10/20 15:35:19 Father Diabetes mellitus [email or web address] Not available 10/20 15:35:30 Father Atrial fibrillation [email or web address] Not available 15:35:45 Medical History No medical history recorded. Gynecological HistoryNo gynecological history recorded. Obstetrics History GPAL:G 0 P 0 0 0 0 Immunizations Vaccine Type Date Status Note Provider Nam e and Address Organization Details Recorded Time COVID-19, mRNA, LNP-S, PF, 100 mcg/0.5mL dose or 50 mcg/0.25mL dose 05/29/2020 completed Augusta porter PA - [facility] 03/08/2023 12:42:53 COVID-19, mRNA, LNP-S, PF, 100 mcg/0.5mL dose or 50 mcg/0.25mL dose 06/26/2020 completed Augusta porter, PA - [facility] 03/08/2023 12:42:53 Tdap 08/02/2016 completed Augusta porter, PA - [facility] 03/08/2023 12:42:53 Tdap 09/03/2010 completed Augusta porter, PA - [facility] 03/08/2023 12:42:53 Past Encounters Encounter ID Performer Location Encounter Start Date Encounter Closed Date Diagnosis/Indication Diagnosis SNOMED-CT Code Diagnosis ICD10 Code Diagnosis Note [id number] [address] [address] [address] 05/03/2020 16:18:26 05/03/2020 17:10:02 [id number] [address] [address] [address] 07/22/2015 17:52:21 07/22/2015 18:53:17 [id number] [address] [address] 04/28/2016 18:30:26 04/28/2016 18:55:32 [id number] Mihir Shen NP [address] [place] [address] 10/20/2022 15:23:24 10/20/2022 15:54:53 Acute urinary tract infection 254155172 N39.0 [id number] RICHY Lopez [address] [place] [address] 03/08/2023 12:26:23 03/08/2023 12:54:30 Infection of tooth 955898080 K04.7 Based on your presentati on and exam, you are being treated for a Dental Infection. I am going to prescribe you and antibiotic to cover this infection. Please be sure to complete the full course of this antibiotic to prevent antibiotic resistance . Antibiotic s will typically take 4-5 days to start to work with symptom improvemen t. The following are my other recommenda tions to help with symptoms and is important for this diagnosis: 1. Take Ibuprofen or Tylenol if you do not have any allergies to these medication s. If you take a blood thinner you should not take NSAIDS like Ibuprofen. These medication will help with the inflammati on in your respirator y tract which should help the cough.2. Half Peroxide/H prison Water Rinses3. Make an appointmen t with a dentist - tooth infection will be helped with antibiotic s but they usually just continue to reoccur. The only treatment is really a root canal or tooth extraction .4. Oralgel can help alleviate some of the symptoms - this can be purchased OTC5. Ice is ok to help with symptoms, but do not apply heat. I would be seen again if you develop any of the following symptoms.1 . Fever > 101.02. Stiff neck - where you can't turn your neck3. Trouble swallowing your saliva - drooling4. Swelling of a lymph node in your throat that is painful to touch5. Difficulty breathing6 . Severe Headache7. Significan t facial swelling especially if it move up close to your eye. Thank you for using [facility] today, please feel free to contact our office if you have any questions or concerns. [id number] LONG KAM NP [address] [facility] [address] [place] [address] 07/09/2023 18:45:48 07/09/2023 19:49:57 Cough 87680863 R05.9 Acute bronchitis 0574453 2 J20.9 Upper resp iratory infection 97667650 J06.9 Health Concerns Section Related Observation LastModified by Organization Detai ls LastModified Time None Recorded Concern Status LastModified by Organization Details LastModified Time None Recorded Advance Directives Directive None Recorded Payers Encounter Date Sequence Insurance Name Policy Number Policy Richards Covered Member ID Richards Member ID Guarantor Name 04/28/2016 1 RADHA: LAWSON (PPO) [id number] Dalia Roa [id number] Dalia Roa 05/03/2020 1 [place] [id number] Dalia Roa [id number] Dalia Crispin 10/20/2022 1 [place] [id number] Dalia Roa [id number] Dalia Crispin 03/08/2023 1 [place] [id number] Dalia Zimmertier [id number] Dalia Crispin 07/09/2023 1 [place] [id number] Dalia Roa [id number] Dalia Roa Notes Date Note Type Note Provider Name and Address Organization Details Recorded Time 3 text/html Urinary Complaint FemaleReported bypatient.source of patient informationInformation obtained from patient; Patient arrived at Urgent Care ambulatory UTI Symptoms:no blood in the urine; no vaginal discharge; no urgency; no pain in the flank; no fever/chills; no incontinence; no recurrent UTI; no known exposure to STD;pain during urination;urinary frequency Severity:mild Duration:1 days Modifying Factors:nothing gives reliefNotes:frequency and urgency x 1 day. denies any fever or fever with chills, denies any History of renal stone or bladder issues. frequency and urgency x 1 day. denies any fever or fever with chills, denies any History of renal stone or bladder issues. Mihir Shen NP [address] [place], [address], [place] - [facility] 10/20/2022 15:54:36 4 text/html 57 y/o female here with dental pain for the past 2 weeks. She is trying to find a dentist. Taking apap around the clock with no relief.Unable to take ibuprofen due to kidney disease RICHY Lopez [address] [place], [address], PA - [facility] 03/08/2023 13:01:36 4 text/html CoughReported bypatient.source of patient informationInformation obtained from patient; Patient arrived at Urgent Care ambulatory Severity:mild Context:smoker Associated Symptoms:no fever; no chills; no chest pain; no heartburn; no nausea; no vomiting; no wheezing; no post nasal drip LONG KAM NP [address] [place], [address], PA - [facility] 07/09/2023 20:06:34 OBGyn Episode No OBEpisode recorded.
--- OUTSIDE RECORDS SUMMARY | 2024-04-12 09:53 | XMS_ITS | Encounter Summary ---
Author Organization [facility] Address [id number] [place] [phone] Care Team Providers Care Plasterer Journeyman Name Role Phone Physician, No Pcp Primary Care Provider Unavaila ble Reason for Visit * Reason Comments Cough Cough, congestion Encounter Details Date Type Department Care Team ([facility] Contact Info) Description 04/07/2024 3:00 PM EST Office Visit Walk-In Clinic [id number] [place] [phone] Mike Reyes PA [address], [place] [id number] Influenza A (Primary Dx) Social History Tobacco [...] Priority Date/Time Associated Diagnosis Comments POC RAPID [id number], MOLECULAR Routine 04/07/2024 5:53 PM EST Influenza A POC INFLUENZA A/B Routine 04/07/2024 5:5 3 PM EST Influenza A documented in this encounter Results * (ABNORMAL) POC Influenza A/B manually resulted (04/07/2024 5:53 PM EST) [facility] Rapid Influenza A AGN POC Positive(A) Negative Rapid Influenza B AGN POC Negative Negative Internal Control Pass Yes Yes Swab 04/07/2024 5:53 PM EST Mike LOCKHART POINT OF CARE TEST ENTER/E DIT ORDERABLES Final Result * Poc Rapid [id number], MOLECULAR (04/07/2024 5:53 PM EST) [facility] COVID-19/SARS- COV-2 Rapid POC Negative Negative Internal Control Pass Yes Yes Swab Nasopharyngeal structure / Unknown 04/07/2024 5:53 PM EST Mike LOCKHART POINT OF CARE TEST ENTER/E DIT ORDERABLES Final Result documented in this encounter Visit Diagnoses Diagnosis Influenza A- Primary Influenza with other respiratory manifestations documented in this encounter Care Teams Plasterer Journeyman Relationship Specialty Start Date End Date Physician, No Pcp PCP - General 04/07/24 documented as of this encounter
[2024-04-12 09:55] VITALS: BP 122/82; PULSE 85; TEMP 36.7; O2SAT 96; BMI 32.7
--- NOTE | 2024-04-12 09:55 | MHC.OFFWIV ---
Intake Vital Signs 04/12/24 09:55 Height 5 ft 4 in Weight 190 lb 4 oz BMI 32.7 BP 122/82 Blood Pressure Location Rt brachial Position Sitting Pulse 85 Pulse Source Pulse Oximeter Temp 98.1 F Temp Source Oral Pulse Oximetry (%) 96 Oxygen Delivery Method Room Air Intake Visit Reasons: EP Flu+ last week, cough, rattling in chest Patient Tobacco Use Status: Current everyday Tobacco user Allergies aspirin [ASPIRIN] Allergy (Unknown, Verified 04/12/24 09:56) NAUSEA & VOMITING meperidine [From DEMEROL] Allergy (Unknown, Verified 04/12/24 09:56) UNKNOWN ibuprofen [IBUPROFEN] Adverse Reaction (Unknown, Verified 04/12/24 09:56) NAUSEA & VOMITING Do you need a note to return to daycare/school/sports/work: No HPI HPI Comments History of Present Illness Details History - The patient is a 58-year-old female presenting with a persistent cough and exhaustion following an influenza diagnosis last week. - Recently diagnosed with influenza but did not commence antiviral treatment due to delay. - Struggles with extreme fatigue and has remained largely bedridden for a week, without accompanying fever. - Experiences persistent cough, causing nighttime disturbances and consequent chest muscle pain. - Developed chest discomfort possibly due to muscle strain, possibly exacerbated by a coughing fit, experienced a pop in the chest. - Adequate fluid intake attempted, with avoidance of overly sweet drinks/Pedialyte; consumed chicken soup. - Current smoker, reduced smoking during acute illness, still able to smoke up to five cigarettes per day. Physical Exam General: Cooperative, healthy appearing, comfortable and no acute distress Orientation/consciousness: Patient oriented x3 Limitations: No limitations Head: Normal to inspection Ears: Hearing grossly normal bilaterally, external ears normal Nose: Normal external nose present, Normal nares present and No nasal discharge present Face and sinus: Normal facial exam and Yes sinuses nontender Mouth: Normal oral and palatal mucosa present and moist mucous membranes Throat: Yes tonsils normal, Yes uvula midline. Posterior oropharynx erythema Eyes: Appearance normal, both eyes and all related structures Neck: Normal visual inspection Respiratory: Clear but dim to auscultation bilaterally. Normal respiratory effort, able to speak in complete sentences, Actively coughing, no respiratory distress, not tachypneic, no tripod positioning and no use of accessory muscles. Cardiovascular: Regular rate and rhythm. Normal S1 and S2 Skin: No rashes or lesions noted Neuro: Patient oriented x3 Extremities: Normal to inspection and Yes no clubbing, cyanosis or edema PFSH Medical History (Updated 04/12/24 @ 10:11 by Tory Valdez PA-C) Nicotine dependence, cigarettes, uncomplicated COPD (chronic obstructive pulmonary disease) Nocturnal hypoxemia Surgical History History of cholecystectomy (~2010) History of tonsillectomy History of kidney surgery Family History Father Atrial fibrillation Diabetes Enlarged prostate Dementia Brother Atrial fibrillation Mother Dementia Breast cancer Social History Housing: House Alcohol intake: current Alcohol intake frequency: does not drink Patient Tobacco Use Status: Current everyday Tobacco user Tobacco use type: Cigarette Cigarette Packs Per Day: 1 Cigarettes Per Day: 20 Years Smoked: onset 17, 1ppd x 38yrs - 38pyh e-Cigarette/Vaping Use: Never Used service: No Current occupational status: employed 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 Cognitive needs: No Hearing needs: No Vision needs: Yes Review of Systems Const All systems reviewed & are unremarkable except as noted in HPI and below Physical Exam Vital Signs: Last Vital Signs Temp 98.1 F 04/12/24 09:55 Pulse 85 04/12/24 09:55 BP 122/82 04/12/24 09:55 Pulse Ox 96 04/12/24 09:55 Oxygen Delivery Method Room Air 04/12/24 09:55 BMI result Body Mass Index 32.7 Assessment & Plan Assessment & Plan (1) Lower respiratory infection (e.g., bronchitis, pneumonia, pneumonitis, pulmonitis): Code(s): J22 - Unspecified acute lower respiratory infection Plan: Patient was informed and verbally consented to the use of an ambient scribe for clinic note documentation during this visit The patient was previously diagnosed with influenza without initiation of antiviral therapy, given presentation timing. Management centers on supportive care with emphasis on hydration; a chest X-ray is scheduled to evaluate complications, including pneumonia. The patient's cough may relate to unresolved influenza symptoms or bronchospasm exacerbated by smoking. An inhaler is recommended for symptomatic relief, particularly for acute episodes. Chest X-ray results will guide antibiotic therapy should pneumonia be identified. Orders: Orders XR chest 2V Today R05.9 - Cough, unspecified Medications: New albuterol sulfate 90 mcg/actuation 2 puffs inhalation Q6H PRN 8.5 grams 0RF shortness of breath or wheezing or cough Coding Level of Care Code Est Pt Level 4 (71043) Diagnoses Lower respiratory infection (e.g., bronchitis, pneumonia, pneumonitis, pulmonitis) J22
== END 2024-04-12 10:18 | disposition home or self-care (01) ==
PROVIDERS: PCP Internal Medicine; Visit Provider Physician Assistant
DX: J22 Unspecified acute lower respiratory infection (principal)

== ENCOUNTER 2024-04-12 10:13 | Outpatient (REF) | payer BC, SELFPAY ==
--- OUTSIDE RECORDS SUMMARY | 2024-04-12 11:26 | XMS_ITS | Encounter Summary ---
Author Organization Address [id number] [place] [phone] Care Team Providers Care Product Applications Engineer Name Role Phone Physician, No Pcp Primary Care Provider Unavaila ble Reason for Visit * Reason Comments Cough Cough, congestion Encounter Details Date Type Department Care Team ([facility] Contact Info) Description 04/07/2024 3:00 PM EST Office Visit Walk-In Clinic [id number] [place] [phone] Mike Reyes PA [address], [place] [phone] Influenza A (Primary Dx) Social History Tobacco [...] Priority Date/Time Associated Diagnosis Comments POC RAPID [id number], MOLECULAR Routine 04/07/2024 5:53 PM EST Influenza A POC INFLUENZA A/B Routine 04/07/2024 5:5 3 PM EST Influenza A documented in this encounter Results * (ABNORMAL) POC Influenza A/B manually resulted (04/07/2024 5:53 PM EST) [facility] Rapid Influenza A AGN POC Positive(A) Negative Rapid Influenza B AGN POC Negative Negative Internal Control Pass Yes Yes Swab 04/07/2024 5:53 PM EST Mike LOCKHART POINT OF CARE TEST ENTER/E DIT ORDERABLES Final Result * Poc Rapid [id number], MOLECULAR (04/07/2024 5:53 PM EST) [facility] COVID-19/SARS- COV-2 Rapid POC Negative Negative Internal Control Pass Yes Yes Swab Nasopharyngeal structure / Unknown 04/07/2024 5:53 PM EST Mike LOCKHART POINT OF CARE TEST ENTER/E DIT ORDERABLES Final Result documented in this encounter Visit Diagnoses Diagnosis Influenza A- Primary Influenza with other respiratory manifestations documented in this encounter Care Teams Product Applications Engineer Relationship Specialty Start Date End Date Physician, No Pcp PCP - General 04/07/24 documented as of this encounter
--- OUTSIDE RECORDS SUMMARY | 2024-04-12 11:26 | XMS_ITS | Clinical Summary ---
Author Organization [facility] Address [address] [place] [address] Care Team Providers Care Industrial Methods Consultant Name Role Phone Pcp, No Primary Care [...] Adults 18 yrs or above (or HM Modifier)([facility]) 1982 Hepatitis C Virus Infection in Adolescents and Adults: Screening (or Modifier) ([facility]) 1982 [facility] Screening Reminder: Ericka aguilar for all adults ([facility]) 1982 Tobacco Smoking Cessation: i n Adults excluding Women: Behavioral and Pharmacotherapy Interventions ([facility]) 1982 DTaP/Tdap/Td Vaccines ([facility]) (1 - Tdap) 09/01/1983 Cervical Cancer Screenin 1-65 yrs of age (or Modifier) 1985 Cervical Cancer Screening: P ap every 3 yrs pts age 21-65 1985 Cervical Cancer: Pap Screeni ng with Modifier timing ([facility]) 1985 Cervical Cancer: hrHPV alone or with cotesting Pap for Pts 30-65yrs screening every 5yrs ([facility]) 1985 Colorectal Cancer Screening 45 -75 Yrs (or HM Modifier) 2009 Colorectal Cancer: FLEXIBLE SIGMOIDOSCOPY Screening every 5 yrs 2009 Colorectal Cancer: Fecal Immunochemical Test (FIT) Annually [facility] 2009 Colorectal Cancer: High-sens itivity gFOBT Screening Annually [facility] 2009 Colorectal Cancer: Stool Col oguard Screening every 3 yrs 2009 Colorectal Cancer:CT Colonog brittney Screening every 5 yrs 2009 Lipid Screening: Every 5 yrs for Women aged 45+ (or HM Modifier) ([facility]) 2010 Breast Cancer: Screening Ericka ually age 50-74 yrs (or HM Modifier)([facility]) 2014 Zoster/Shingles Vaccine Seri es Screening: Adults aged 18+ yrs (or HM Modifiers)([facility]) (1 of 2) 2014 Flu Vaccination: Yearly for ages 18mos through 64 years (or Modifier)([facility]) 09/18/2023 COVID-19 Vaccine Screening: Initial Series and Booster Status ([facility]) (2023- season) 2023 Pneumococcal Vaccination Scr eening: Pts 0-19 & 19-64 yrs of age ([facility]) Aged Out No longer eligible based on patient's age to complete this topic Medical Devices Not on file Insurance [facility] Care Teams Industrial Methods Consultant Relationship Specialty Start Date End Date Pcp, No PCP - General Family Medicine 06/02/20
--- OUTSIDE RECORDS SUMMARY | 2024-04-12 11:26 | XMS_ITS | Clinical Summary ---
Author Organization [address] [place] [address] [place] [phone] Phone Care Team Providers Care Cleaner And Preparer Name Role Phone Physician, No Pcp Primary Care Provider Unavaila ble Allergies Active Allergy Reactions Criticality Noted Date Comments Meperidine Hcl 05/24/2009 Propoxyphene Hcl 05/24/2009 Medications No known medications Encounters Date Type Department Care Team Description 04/07/2024 3:00 PM EST Office Visit Walk-In Clinic [address] [phone] Mike Reyes PA Influenza A (Primary Dx) from Last 3 Months Surgical History Surgery Date Site/Laterality Comments TONSILLECTOMY PROCEDURE: HISTORICAL TONSILLECTOMY OTHER SURGICAL HISTORY PROCEDURE: [place] URETERORRHAPHY SUTURE URETER SEPARATE PROCEDURE; COMMENT: uncertain [...] 3 PM EST Influenza A POC RAPID [id number], MOLECULAR Routine 04/07/2024 5:53 PM EST Influenza A from Last 3 Months Results * Poc Rapid [id number], MOLECULAR (04/07/2024 5:53 PM EST) [facility] COVID-19/SARS- COV-2 Rapid POC Negative Negative Internal Control Pass Yes Yes Swab Nasopharyngeal structure / Unknown 04/07/2024 5:53 PM EST Mike Reyes ME POINT OF CARE TEST ENTER/E DIT ORDERABLES Final Result * (ABNORMAL) POC Influenza A/B manually resulted (04/07/2024 5:53 PM EST) [facility] Rapid Influenza A AGN POC Positive(A) Negative Rapid Influenza B AGN POC Negative Negative Internal Control Pass Yes Yes Swab 04/07/2024 5:53 PM EST Mike LOCKHART POINT OF CARE TEST ENTER/E DIT ORDERABLES Final Result from Last 3 Months Additional Health Concerns Infection Onset Date Last Indicated Influenza 04/07/2024 04/07/2024 Insurance Care Teams Cleaner And Preparer Relationship Specialty Start Date End Date Physician, No Pcp PCP - General 04/07/24
== END 2024-04-12 10:14 | disposition home or self-care (01) ==
LOC: HO.HMGCX 10:13
PROVIDERS: PCP Internal Medicine; Visit Provider Physician Assistant
DX: Z13.89 Encounter for screening for other disorder (principal)

== ENCOUNTER → 2024-04-12 10:16 | Outpatient (BNV) | payer BC, SELFPAY | PROVIDERS: PCP Internal Medicine; Visit Provider Radiology Diagnostic Radiology | DX: F17.210 Nicotine dependence, cigarettes, uncomplicated (principal) | CPT/HCPCS: 71271 ==

== ENCOUNTER 2024-08-09 08:01 | Outpatient (AMB) | payer BC, SELFPAY ==
[2024-08-09 08:05] VITALS: BMI 32.1
--- NOTE | 2024-08-09 08:05 | MHC.OFFWIV ---
Intake Vital Signs 08/09/24 08:05 Height 5 ft 4 in Weight 187 lb BMI 32.1 Intake Visit Reasons: EP-?uti Patient Tobacco Use Status: Current everyday Tobacco user Allergies aspirin (ASPIRIN) Allergy (Unknown, Verified 04/12/24 09:56) NAUSEA & VOMITING meperidine (From DEMEROL) Allergy (Unknown, Verified 04/12/24 09:56) UNKNOWN ibuprofen (IBUPROFEN) Adverse Reaction (Unknown, Verified 04/12/24 09:56) NAUSEA & VOMITING HPI HPI Comments History of Present Illness Details 58 y/o Female patient who presents to the walk in clinic with c/o Urinary symptoms. Reports Urinary frequency and dsyuria for 4 days now. [facility] Medical History (Updated 08/09/24 @ 09:18 by Marianna Daley NP) Cystitis Nicotine dependence, cigarettes, uncomplicated COPD (chronic obstructive pulmonary disease) Nocturnal hypoxemia Surgical History History of cholecystectomy (~2010) History of tonsillectomy History of kidney surgery Family History Father Atrial fibrillation Diabetes Enlarged prostate Dementia Brother Atrial fibrillation Mother Dementia Breast cancer Social History Housing: House Alcohol intake: current Alcohol intake frequency: does not drink Patient Tobacco Use Status: Current everyday Tobacco user Tobacco use type: Cigarette Cigarette Packs Per Day: 1 Cigarettes Per Day: 20 Years Smoked: onset 17, 1ppd x 38yrs - 38pyh e-Cigarette/Vaping Use: Never Used service: No Current occupational status: employed 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 Cognitive needs: No Hearing needs: No Vision needs: Yes Review of Systems Const All systems reviewed & are unremarkable except as noted in HPI and below Physical Exam Vital Signs: BMI result Body Mass Index 32.1 Const General: no acute distress Nutritional Appearance: overweight Orientation/consciousness: patient oriented x3 General: Yes no CVA tenderness Back/Spine/Pelvis Back: no CVA tenderness Neuro General: patient oriented x3, gait normal and moves all extremities Psych Speech and movement: Normal speech and movement present Results AMB Urinalysis, Automated UA Leukoctes 500 Rasta/uL Last Edit by Kiah Bond CMA on 08/09/24 09:20 UA Nitrite Positive Last Edit by Kiah Bond, CARISA on 08/09/24 09:20 UA Urobilinogen 0.2 mg/dL Last Edit by Kiah Bond, CARISA on 08/09/24 09:20 UA Protein 0 mg/dL Last Edit by Kiah Bond, FITTING ROOM ASSOCIATE on 08/09/24 09:20 UA pH 6.0 Last Edit by Kiah Bond, FITTING ROOM ASSOCIATE on 08/09/24 09:20 UA Blood 80 Jack/uL Last Edit by Kiah Bond, FITTING ROOM ASSOCIATE on 08/09/24 09:20 UA Specific [place] 1.030 Last Edit by Kiah Bond, CARISA on 08/09/24 09:20 UA Ketone Negative Last Edit by Kiah Bond, CARISA on 08/09/24 09:20 UA Bilirubin 0 mg/dL Last Edit by Kiah Bond, FITTING ROOM ASSOCIATE on 08/09/24 09:20 UA Glucose 0 mg/dL Last Edit by Kiah Bond, FITTING ROOM ASSOCIATE on 08/09/24 09:20 Results Reviewed Results Reviewed: Laboratory Last Values Urine pH (Auto) 6.0 08/09/24 08:05 Specific [place] (Auto) 1.030 08/09/24 08:05 Urine Protein (Auto) 0 mg/dL 08/09/24 08:05 Glucose (UA)(Auto) 0 mg/dL 08/09/24 08:05 Urine Ketones (Auto) Negative 08/09/24 08:05 Urine Blood (Auto) 80 Jack/uL 08/09/24 08:05 Urine Nitrite (Auto) Positive 08/09/24 08:05 Urine Bilirubin (Auto) 0 mg/dL 08/09/24 08:05 Urine Urobilinogen (Auto) 0.2 mg/dL 08/09/24 08:05 Leukocyte Esterase (Auto) 500 Rasta/uL 08/09/24 08:05 Assessment & Plan Assessment & Plan (1) Cystitis: Code(s): N30.90 - Cystitis, unspecified without hematuria Plan: Urinalysis positive for Leuko and Nitrit Sent urine godinez Culture Sent Cefuroxime Orders: Orders AMB Urinalysis Automated Today Z13.9 - Encounter for screening, unspecified Urine Culture Today N30.90 - Cystitis, unspecified without hematuria Medications: New cefuroxime axetil 500 mg PO Q12H 14 tabs 0RF 7 days N30.90 - Cystitis, unspecified without hematuria Coding Level of Care Code Est Pt Level 4 (11353) Diagnoses Cystitis N30.90 Time Spent (min) 20
--- OUTSIDE RECORDS SUMMARY | 2024-08-09 08:07 | XMS_ITS | Clinical Summary ---
Author Organization [address] [place] [address] [place] [phone] Phone Care Team Providers Care Patient Case Manager Name Role Phone Physician, No Pcp Primary Care Provider Unavaila ble Allergies Active Allergy Reactions Criticality Noted Date Comments Meperidine Hcl 05/24/2009 Propoxyphene Hcl 05/24/2009 Medications No known medications Surgical History Surgery Date Site/Laterality Comments TONSILLECTOMY PROCEDURE: HISTORICAL TONSILLECTOMY OTHER SURGICAL HISTORY PROCEDURE: [place] URETERORRHAPHY SUTURE URETER SEPARATE PROCEDURE; COMMENT: uncertain [...] 96 04/07/2024 3:06 PM EST Temperature 36.7 C (98.1 F) 04/07/2024 3:06 PM EST Respiratory Rate - - Oxygen Saturation 96% [...] Vaccines (1 of 2) 2014 COVID-19 Vaccine (3 - 2023-2 5 season) 2023 06/26/2020, 05/29/2020 Colorectal Cancer Screening: Colonoscopy 04/07/2024 Depression Screening 04/07/2024 HIV Screening 04/07/2024 Hepatitis C Screening 04/07/2024 Social Influencers of Health Screening 04/07/2024 Influenza Vaccine (Season Ended) 2024 DTaP,Tdap,and Td Vaccines (3 - Td or Tdap) 08/02/2026 08/02/2016, 09/03/2010 RSV Immunization Adult Patients (1 - 1-dose 75+ series) 09/01/2039 HIB [...] age to complete this topic Meningococcal B Vaccine Aged Out No l onger eligible based on patient's age to complete this topic RSV Immunization Patients Under 20 months Aged Out No longer eligible b ased on patient's age to complete this topic Varicella Vaccines Aged Out No longer eligible based on patient's age to complete this topic Insurance Care Teams Patient Case Manager Relationship Specialty Start Date End Date Physician, No Pcp PCP - General 04/07/24
== END 2024-08-09 09:25 | disposition home or self-care (01) ==
PROVIDERS: PCP Internal Medicine; Visit Provider Nurse Practitioner Family
DX: N30.90 Cystitis, unspecified without hematuria (principal); Z13.9 Encounter for screening, unspecified

== ENCOUNTER 2024-08-09 08:01 | Outpatient (REF) | payer BC, SELFPAY | END 2024-08-09 08:02 | disposition home or self-care (01) | LOC: HO.HHCLNP 08:01 | PROVIDERS: PCP Internal Medicine; Visit Provider Nurse Practitioner Family | DX: N30.90 Cystitis, unspecified without hematuria (principal); B96.20 Unspecified Escherichia coli [E. coli] as the cause of diseases classified elsewhere | CPT/HCPCS: 81003; 87086; 87088; 87186 ==

== ENCOUNTER 2024-08-30 15:43 | Outpatient (AMB) | payer BC, SELFPAY ==
[2024-08-30 15:46] VITALS: BP 126/60; PULSE 84; TEMP 36.4; O2SAT 96; BMI 32.3
--- NOTE | 2024-08-30 15:46 | AM.OFFWIN_ITS ---
Intake Vital Signs 08/30/24 15:46 Height 5 ft 4 in Weight 188 lb 4 oz BMI 32.3 BP 126/60 Blood Pressure Location Lt brachial Position Sitting Pulse 84 Pulse Source Pulse Oximeter Temp 97.5 F Temp Source Oral Pulse Oximetry (%) 96 Oxygen Delivery Method Room Air Intake Visit Reasons: EP UTI Intake Note: Patient present with urgency, frequency and burning times 2 days Patient Tobacco Use Status: Current everyday Tobacco user Personnel Recruiter Required: No Is last menstrual period known: No Post menopausal: Yes Patient : No Allergies aspirin (ASPIRIN) Allergy (Unknown, Verified 08/30/24 15:59) NAUSEA & VOMITING meperidine (From DEMEROL) Allergy (Unknown, Verified 08/30/24 15:59) UNKNOWN ibuprofen (IBUPROFEN) Adverse Reaction (Unknown, Verified 08/30/24 15:59) NAUSEA & VOMITING Do you need a note to return to daycare/school/sports/work: No HPI HPI Comments History of Present Illness Details History - The patient is a 58-year-old female pr esenting with suspected Urinary Tract Infection. - Reports urgency, frequency and burning with urination for 2 days. - No fever or low back pain reported. - Previous UTI with E. coli infection tr eated with cefuroxime, which resolved the infection. - Experienced kidney pain during the pre vious infection, which persisted, thinks the antibiotic caused the pain. - No history of kidney stones, but a jered al ultrasound in October 2022 showed normal kidneys. Physical Exam General: Cooperative, healthy appearing, comfortable, no acute distress and well developed Orientation: Patient oriented x3 Limitations: No limitations Head: Normal to inspection Ears: Hearing grossly normal bilaterally Face and sinus: Normal facial exam Neck: Normal visual inspection and Yes full ROM Respiratory: Normal respiratory effort and able to speak in complete sentences. Skin: No rashes or lesions noted Neuro: Patient oriented x3 Back/spine: +CVA right side, negative left [facility] History (Updated 08/30/24 @ 16:14 by Tory Valdez PA-C) Cystitis Nicotine dependence, cigarettes, uncomplicated COPD (chronic obstructive pulmonary disease) Nocturnal hypoxemia Surgical History History of cholecystectomy (~2010) History of tonsillectomy History of kidney surgery Family History Father Atrial fibrillation Diabetes Enlarged prostate Dementia Brother Atrial fibrillation Mother Dementia Breast cancer Social History Housing: House Alcohol intake: current Alcohol intake frequency: does not drink Patient Tobacco Use Status: Current everyday Tobacco user Tobacco use type: Cigarette Cigarette Packs Per Day: 1 Cigarettes Per Day: 20 Years Smoked: onset 17, 1ppd x 38yrs - 38pyh e-Cigarette/Vaping Use: Never Used service: No Current occupational status: employed 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 Cognitive needs: No Hearing needs: No Vision needs: Yes Review of Systems Const All systems reviewed & are unremarkable except as noted in HPI and below Physical Exam Vital Signs: Last Vital Signs Temp 97.5 F 08/30/24 15:46 Pulse 84 08/30/24 15:46 BP 126/60 08/30/24 15:46 Pulse Ox 96 08/30/24 15:46 Oxygen Delivery Method Room Air 08/30/24 15:46 BMI result Body Mass Index 32.3 Results AMB Urinalysis, Automated UA Leukoctes 0 Rasta/uL Last Edit by Eve Briones MA on 08/30/24 16:05 UA Nitrite Negative Last Edit by Eve Briones MA on 08/30/24 16:05 UA Urobilinogen 0.2 mg/dL Last Edit by Eve Briones MA on 08/30/24 16:05 UA Protein 0 mg/dL Last Edit by Eve Briones MA on 08/30/24 16:05 UA pH 6.0 Last Edit by Eve Briones MA on 08/30/24 16:05 UA Blood 10 Jack/uL Last Edit by Eve Briones MA on 08/30/24 16:05 UA Specific [place] 1.025 Last Edit by Eve Briones MA on 08/30/24 16:05 UA Ketone Negative Last Edit by Eve Briones MA on 08/30/24 16:05 UA Bilirubin 0 mg/dL Last Edit by Eve Briones MA on 08/30/24 16:05 UA Glucose 0 mg/dL Last Edit by Eve Briones MA on 08/30/24 16:05 Results Reviewed Results Reviewed: Laboratory Last Values Urine pH (Auto) 6.0 08/30/24 16:03 Specific [place] (Auto) 1.025 08/30/24 16:03 Urine Protein (Auto) 0 mg/dL 08/30/24 16:03 Glucose (UA)(Auto) 0 mg/dL 08/30/24 16:03 Urine Ketones (Auto) Negative 08/30/24 16:03 Urine Blood (Auto) 10 Jack/uL 08/30/24 16:03 Urine Nitrite (Auto) Negative 08/30/24 16:03 Urine Bilirubin (Auto) 0 mg/dL 08/30/24 16:03 Urine Urobilinogen (Auto) 0.2 mg/dL 08/30/24 16:03 Leukocyte Esterase (Auto) 0 Rasta/uL 08/30/24 16:03 Assessment & Plan Assessment & Plan (1) UTI (urinary tract infection): Code(s): N39.0 - Urinary tract infection, site not specified Qualifiers: Hematuria presence: with hematuria Urinary tract infection type: acute cystitis Qualified Code(s): N30.01 - Acute cystitis with hematuria Plan: Plan Patient was informed and verbally consented to the use of an ambient scribe for clinic note documentation during this visit. 1. Urinary Tract Infection - Urine culture to confirm infection and guide antibiotic therapy. - Prescribed cefuroxime for five days, with instructions to increase fluid intake. - Advised to use phenazopyridine for pain management as needed. 2. Hematuria - Monitor for resolution with UTI treatment. Likely secondary to infection. 3. Kidney Pain with + CVA tenderness on the right side - Consideration of kidney stones, but last ultrasound showed normal kidneys and patient states she has never had them before. Orders: Orders AMB Urinalysis Automated Today Z13.9 - Encounter for screening, unspecified Urine Culture Today N39.0 - Urinary tract infection, site not specified Medications: New cefuroxime axetil 500 mg PO Q12H 10 tabs 0RF phenazopyridine 200 mg (2 x 100 mg) PO Q8H PRN 6 tabs 0RF Pain Coding Level of Care Code Est Pt Level 3 (04753) Diagnoses Acute cystitis with hematuria N30.01 Hematuria presence: with hematuria Urinary tract infection type: acute cystitis
--- OUTSIDE RECORDS SUMMARY | 2024-08-30 16:48 | XMS_ITS | Clinical Summary ---
Author Organization [address] [place] [address] [place] [phone] Phone Care Team Providers Care Nutrition Aide Name Role Phone Physician, No Pcp Primary Care Provider Unavaila ble Allergies Active Allergy Reactions Criticality Noted Date Comments Meperidine Hcl 05/24/2009 Propoxyphene Hcl 05/24/2009 Medications No known medications Surgical History Surgery Date Site/Laterality Comments TONSILLECTOMY PROCEDURE: HISTORICAL TONSILLECTOMY OTHER SURGICAL HISTORY PROCEDURE: IN URETERORRHAPHY SUTURE URETER SEPARATE PROCEDURE; COMMENT: uncertain [...] Years (1 of 2 - PCV) 09/01/1983 Cervical Cancer Screening: P ap Smear 1985 Zoster Vaccines (1 of 2) 2014 COVID-19 Vaccine (3 - 2023-2 5 season) 2023 06/26/2020, 05/29/2020 Colorectal Cancer Screening: Colonoscopy 04/07/2024 Depression Screening 04/07/2024 HIV Screening 04/07/2024 Hepatitis C Screening 04/07/2024 Social Influencers of Health Screening 04/07/2024 Influenza Vaccine (#1) 2024 DTaP,Tdap,and Td Vaccines (3 - Td [...] to complete this topic Insurance Care Teams Nutrition Aide Relationship Specialty Start Date End Date Physician, No Pcp PCP - General 04/07/24
--- OUTSIDE RECORDS SUMMARY | 2024-08-30 16:48 | XMS_ITS | Data Portability ---
Author Organization [facility] [address] Address [address] [place] [address] Care Team Providers Care Investigator Cash Shortage Name Role Phone ROBERT WOODY Primary Care Provider [phone] Assessment Encounter Date Assessment Date Assessment LastModified [...] Pain 3. Wheezing 4. Coughing up Blood rajaniga Not available 07/09/2023 20:06:30 Plan of Treatment Reminders Order Date Submit Date Provider Last Modified By Organization Details Last Modified Time Details Appointments None recorded. Lab rapid flu (A+B) 2023 024 [place] [facility] [address], [address] [place], [address], 4 13:09:24 urinalysis, dipstick 2022 023 josé miguel [facility] [address], [address] [place], [address], 3 15:53:20 culture, urine 2022 023 [place] [facility], [address] [place] [address], [place], [address], 3 06:07:26 Referral None recorded. Procedures None recorded. Surgeries None recorded. Imaging XR, chest, 2 view [email or web address], [address] [facility], [place], [address], 19:49:57 Medication Orders Claritin-D 12 Hour 5 mg-120 mg tablet,exte nded release 2023 [place] [facility], [address], [place], [id number], 4 19:48:44 albuterol sulfate HFA 90 mcg/actuati on aerosol inhaler 2023 [facility] #15698, [address], [place], [id number], 4 19:48:45 benzonatate 200 mg capsule 2023 024 [facility] #14297, [address] [place], [place], [id number], 4 19:48:44 amoxicillin 875 mg-aditya m clavulanate 125 mg tablet 2023 024 [facility] #75365, [address], [place], [id number], 4 12:52:30 Macrobid 100 mg capsule 2022 023 [facility] #67775, [address], [place], [id number], 12:43:14 Patient TargetsNo targets recorded. Patient Instructions Encounter Date Encounter Id Patient Instructions Last Modified By Organization Details Last Modified Time 10/20/2022 [id number] We recommend you get a repeat urinalysis [...] Department. [email or web address] Not available 10/20/2022 15:43:10 07/09/2023 [id number] cough: care instructions [email or web address] Not available 07/09/2023 [...] routine FINAL REPORT abnormal Not Available [facility] ([facility]) [address] [facility], [place], [address], 10/24/2022 10:06:46 10/21/19 23 10/24/2022 URINE CULTU [...] ng units per mL Not Available [facility] ([facility]) [address] [facility], [place], [address], 10/24/2022 10:06:46 10/21/19 23 10/24/2022 URINE CULTU [...] thopr im/Osorio lfa S Not Available [facility] ([facility]) [address] [facility], [place], [address], 10/24/2022 10:06:46 10/21/19 23 10/20/2022 urina lysis , dipst ick Unknown Analyte Normal = light yellow Not Available [address] [place], [address], 10/20/2022 15:39:48 10/21/19 23 10/20/2022 urina lysis , dipst ick Unknown Analyte Yellow Not Available [address] [place] [address] [address] [place], [address], 10/20/2022 15:39:48 10/21/1910/20/2022 urina lysis , dipst ick Unknown Analyte Normal = clear Not Available [address] [place], [address], 10/20/2022 15:39:48 10/21/19 23 10/20/2022 urina lysis , dipst ick Unknown Analyte Cloudy Not Available [address] [place] [address] [address] [place], [address], 10/20/2022 15:39:48 10/21/19 23 10/20/2022 urina lysis , dipst ick Unknown Analyte Normal = negati ve Not Available [address] [place], [address], 10/20/2022 15:39:48 10/21/19 23 10/20/2022 urina lysis , dipst ick Unknown Analyte Negati ve Not Available [facility] [place], [address], 10/20/2022 15:39:48 10/21/19 23 10/20/2022 urina lysis , dipst ick Unknown Analyte Normal = Negati ve Not Available [address] [place], [address], 10/20/2022 15:39:48 10/21/19 23 10/20/2022 urina lysis , dipst ick Unknown Analyte Negati ve Not Available [address] [place], [address], 10/20/2022 15:39:48 10/21/19 23 10/20/2022 urina lysis , dipst ick Unknown Analyte Normal = Negati ve Not Available [address] [place], [address], 10/20/2022 15:39:48 10/21/1910/20/2022 urina lysis , dipst ick Unknown Analyte Negati ve Not Available [address] [place], [address], 10/20/2022 15:39:48 10/21/1910/20/2022 urina lysis , dipst ick Unknown Analyte Normal = 1.010, 1.015, 1.020 Not Available [address] [place], [address], 10/20/2022 15:39:48 10/21/1910/20/2022 urina lysis , dipst ick Unknown Analyte 1.030 Not Available [facility] [address] [place], [address], 10/20/2022 15:39:48 10/21/1910/20/2022 urina lysis , dipst ick Unknown Analyte Normal = Negati ve Not Available [address] [place], [address], 10/20/2022 15:39:48 10/21/19 23 10/20/2022 urina lysis , dipst ick Unknown Analyte Trace- intact Not Available [address] [place], [address], 10/20/2022 15:39:48 10/21/1910/20/2022 urina lysis , dipst ick Unknown Analyte Normal = 6.5, 7.0, 7.5, 8.0 Not Available [address] [place], [address], 10/20/2022 15:39:48 10/21/19 23 10/20/2022 urina lysis , dipst ick Unknown Analyte 6.0 Not Available [facility] [address] [place], [address], 10/20/2022 15:39:48 10/21/1910/20/2022 urina lysis , dipst ick Unknown Analyte Normal = Negati ve Not Available [address] [place], [address], 10/20/2022 15:39:48 10/21/1910/20/2022 urina lysis , dipst ick Unknown Analyte 30 mg/dL Not Available [address] [place], [address], 10/20/2022 15:39:48 10/21/1910/20/2022 urina lysis , dipst ick Unknown Analyte Normal = 0.2, 1.0 Not Available [address] [place], [address], 10/20/2022 15:39:48 10/21/1910/20/2022 urina lysis , dipst ick Unknown Analyte 0.2 E.U./d L Not Available [address] [place], [address], 10/20/2022 15:39:48 10/21/19 23 10/20/2022 urina lysis , dipst ick Unknown Analyte Normal = Negati ve Not Available [address] [place], [address], 10/20/2022 15:39:48 10/21/19 23 10/20/2022 urina lysis , dipst ick Unknown Analyte Positi ve Not Available [address] [place], [address], 10/20/2022 15:39:48 10/21/19 23 10/20/2022 urina lysis , dipst ick Unknown Analyte Normal = Negati ve Not Available [address] [place], [address], 10/20/2022 15:39:48 10/21/19 23 10/20/2022 urina lysis , dipst ick Unknown Analyte Small Not Available [facility] [address] [place] [address], [address], 10/20/2022 15:39:48 07/13/19 24 07/13/2023 rapid flu (A+B) Unknown Analyte negati ve Not Available [address] [place], [address], 07/09/2023 18:53:03 07/13/19 24 07/13/2023 rapid flu (A+B) Unknown Analyte negati ve Not Available [address] [place] [address], [address], 07/09/2023 18:53:03 07/13/19 24 07/13/2023 rapid flu (A+B) Unknown Analyte yes Not Available [facility] [address] [place] [address], [address], 07/09/2023 18:53:03 07/09/19 24 07/09/2023 XR, chest , 2 view No observ ation record ed. sara [facility] [address] [place], [address], 07/09/2023 20:08:40 Result Notes None recorded. Problems Name Problem SNOMED Code Status Onset Date Resolution Date Notes Provider Name and Address Organization Details Recorded Time Kidney disease 64758713 Active 023 JOSE DRINKWINE null, PA - [facility] 3 15:34:22 Arthritis 3093457 Active 023 JOSE DRINKWINE null, PA - [facility] 3 15:34:52 Cough 04955024 Active 024 LONG KAM NP [address] [place], [address], PA - [facility] 4 19:03:04 Acute bronchitis 76589521 Active 024 LONG KAM NP [address] [place], [address], PA - [facility] 4 19:46:16 Upper respiratory infection 43080747 Active 024 LONG KAM NP [address] [place], [address], PA - [facility] 4 19:47:54 Problem Notes None recorded. Procedures Surgical History Date Name Laterality Status Provider Name and Address Organization Details Recorded Time cholecystectomy completed Augusta Stanley PA - [facility] 03/08/2023 12:44:54 procedure on kidney completed JOSE LANEKRYSTALE PA - [facility] 10/20/2022 15:34:32 Imaging Results None recorded. Procedure Notes None recorded. Medical Equipment None Reported. Allergies Allergen ID Allergen Name Allergen Category Reaction Reaction Severity Criticality Documentation Date Start Date Code Code System Note Provider Name and Address Organization Details Recorded Time 459011 Demerol medicatio n hallucina tions Not available Not available 10/20/2022 70561 1 RxNorm JOSE DRINKKRYSTALE null, PA - [facility] 3 15:33:30 369428 propoxyph sheela hydrochlo ride medicatio n hallucina tions Not available Not available 10/20/2022 99991 RxNorm JOSE VEE null, PA - [facility] 3 15:33:45 774154 aspirin medicatio n Not available Not available [...] height Body mass index (BMI) Body weight Respiratory rate Body temperature Oxygen saturation Oxygen saturation in Arterial blood by Pulse oximetry Heart rate Systolic And Diastolic Provider Name and Address Organization Details Last Updated DateTime 4 162.56 cm 31.8 kg/m2 57075.5 9 g 18 /min 98.5 [degF] 96 % 96 % 75 /min 108/78 mm[Hg] Augusta Stanley [place] - [employer] [facility] 4 12:42:46 Date Recorded Body height Body mass index (BMI) Body weight Body temperature Respiratory rate Heart rate Oxygen saturation Oxygen saturation in Arterial blood by Pulse oximetry Systolic And Diastolic Provider Name and Address Organization Details Last Updated DateTime 4 162.56 cm 31.8 kg/m2 76528.5 9 g 97.8 [degF] 16 /min 88 /min 98 % 98 % 92/60 mm[Hg] Katherine Hernandez [place] [employer] [facility] 4 18:52:29 Date Recorded Body height Body mass index (BMI) Body weight Body temperature Respiratory rate Heart rate Oxygen saturation Oxygen saturation in Arterial blood by Pulse oximetry Systolic And Diastolic Provider Name and Address Organization Details Last Updated DateTime 3 162.56 cm 31.4 kg/m2 58877.4 g 97.7 [degF] 16 /min 82 /min 97 % 97 % 110/62 mm[Hg] JOSE VEE [facility] 3 15:39:15 Social History Question Answer Notes LastModified by Organizat ion Details LastModified Time Tobacco Smoking Status Current Every Day Smoker JOSE porter PA [facility] 10/20/2022 15:36:08 Have You Had A Flu Shot This [...] Smoke? 1 PPD Information not available 10/20/2022 Have You Recently Traveled Abroad? No Information not available 10/20/2022 Sex: Unknown Functional Status Question Answer Note LastModified by Organizat ion Details LastModified Time Do you use any illicit or recreational drugs? No Information not available 10/20/2022 Do you or have you ever used any other forms of tobacco or nicotine? No Information not available 10/20/2022 What is your level of alcohol consumption? None Information not available 03/08/2023 Mental Status None recorded. Family History Relationship [...] dose or 50 mcg/0.25mL dose 05/29/2020 completed RICHY S[facility] 03/08/2023 12:42:53 COVID-19, mRNA, LNP-S, PF, 100 mcg/0.5mL dose or 50 mcg/0.25mL dose 06/26/2020 completed RICHY Sosa [facility] 03/08/2023 12:42:53 Tdap 08/02/2016 completed RICHY Sosa [facility] 03/08/2023 12:42:53 Tdap 09/03/2010 completed RICHY Sosa [facility] 03/08/2023 12:42:53 Past Encounters Encounter ID Performer Location Encounter Start Date Encounter Closed Date Diagnosis/Indication Diagnosis SNOMED-CT Code Diagnosis ICD10 Code Diagnosis Note [id number] [address] [facility] [address] [place] [phone] 05/03/2020 16:18:26 05/03/2020 17:10:02 [id number] [address] [address] 07/22/2015 17:52:21 07/22/2015 18:53:17 [id number] [address] [address] 04/28/2016 18:30:26 04/28/2016 18:55:32 [id number] LAURIE HODGE [facility] [address] [facility] [address] [place] [address] 10/20/2022 15:23:24 10/20/2022 15:54:53 Acute urinary tract infection 999388886 N39.0 [id number] [facility] Lopez [address] [facility] [address] [place] [address] 03/08/2023 12:26:23 03/08/2023 12:54:30 Infection of tooth 216100437 K04.7 Based on your presentati on and [...] which should help the cough.2. Half Peroxide/H skilled nursing [place]3. Make an appointmen t with [...] to your eye. Thank you for using [facility] today, please feel free to contact our office if you have any questions or concerns. [id number] [place] [address] [facility] [address] [place] [address] 07/09/2023 18:45:48 07/09/2023 19:49:57 Cough 25353547 R05.9 Acute bronchitis 9441498 2 J20.9 Upper resp iratory infection 38478509 J06.9 Health Concerns Section Related Observation LastModified by Organization Detai ls LastModified Time None Recorded Concern Status LastModified by Organization Details LastModified Time None Recorded Advance Directives Directive None Recorded Payers Insurance Date Sequence Insurance Name Policy Number Policy Richards Covered Member ID Richards Member ID Guarantor Name 07/09/2023 1 [place] [id number] Dalia Roa [id number] Dalia Roa Notes Date Note Type Note [...] NP [address] [place], [address], [employer] [facility] 10/20/2022 15:54:36 4 text/html 57 y/o female here with dental pain for the past 2 weeks. She is trying to find a dentist. Taking apap around the clock with no relief.Unable to take ibuprofen due to kidney disease [place], [address], PA [facility] 03/08/2023 13:01:36 4 text/html CoughReported bypatient.source of patient informationInformation obtained from patient; Patient arrived at Urgent Care ambulatory Severity:mild Context:smoker Associated Symptoms:no fever; no chills; no chest pain; no heartburn; no nausea; no vomiting; no wheezing; no post nasal drip [place], [address], PA [facility] 07/09/2023 20:06:34 OBGyn Episode No OBEpisode recorded.
--- OUTSIDE RECORDS SUMMARY | 2024-08-30 16:48 | XMS_ITS | Clinical Summary ---
Author Organization [facility] Seen & [facility] lin Address [address] [place] [address] Care Team Providers Care Storage And Backup Administrator Name Role Phone Pcp, No Primary Care Provider [phone] Social History Tobacco Use Types Packs/Day Years [...] Modifier) ([facility]) 1982 [facility] Screening Reminder: Ericka aguilar for all adults ([facility]) 1982 Tobacco Smoking Cessation: i n Adults excluding Women: Behavioral and Pharmacotherapy Interventions ([facility]) 1982 DTaP/Tdap/Td Vaccines ([facility]) (1 - Tdap) 09/01/1983 Cervical Cancer Screenin [...] Cancer Screening 45 -75 Yrs (or HM Modifier ) 2009 Colorectal Cancer: FLEXIBLE SIGMOIDOSCOPY Screening every 5 yrs 2009 Colorectal Cancer: Fecal Imm unochemical Test (FIT) Annually [facility] 2009 Colorectal Cancer: High-sens itivity gFOBT Screening Annually [facility] 2009 Colorectal Cancer: Stool Col oguard Screening every 3 yrs 2009 Colorectal Cancer:CT Colonography Screening every 5 yr s 2009 Breast Cancer: Screening Ericka ually age 50-74 yrs (or HM Modifier)([facility]) 2014 Pneumococcal Vaccination Scr eening: Patients 50+ yrs of age ([facility]) (1 of 1 - PCV) 2014 Zoster/Shingles Vaccine Seri es Screening: Adults aged 18+ yrs (or HM Modifiers)([facility]) (1 of 2) 2014 COVID-19 Vaccine Screening: Initial Series and Booster Status ([facility]) (2023- season) 2023 Flu Vaccination: Yearly for ages 18mos through 64 years (or Modifier)([facility]) 09/17/2024 Medical Devices Not on file Insurance [facility] Care Teams Storage And Backup Administrator Relationship Specialty Start Date End Date Pcp, Otilia PCP - General Family Medicine 06/02/20
== END 2024-08-30 16:15 | disposition home or self-care (01) ==
PROVIDERS: PCP Internal Medicine; Visit Provider Physician Assistant
DX: Z13.9 Encounter for screening, unspecified (principal); N30.01 Acute cystitis with hematuria

== ENCOUNTER 2024-08-30 16:08 | Outpatient (REF) | payer BC, SELFPAY | END 2024-08-30 16:09 | disposition home or self-care (01) | LOC: HO.LNP 16:08 | PROVIDERS: Visit Provider Physician Assistant | DX: N30.01 Acute cystitis with hematuria (principal); N23 Unspecified renal colic; R39.15 Urgency of urination; R35.0 Frequency of micturition; Z13.89 Encounter for screening for other disorder | CPT/HCPCS: 81003; 87086 ==

== ENCOUNTER 2024-11-09 11:33 | Outpatient (AMB) | payer BC, SELFPAY ==
[2024-11-09 11:51] VITALS: BP 108/76; PULSE 95; RESP 18; TEMP 36.8; O2SAT 96; BMI 32.1
--- NOTE | 2024-11-09 11:51 | A.OFFPC_ITS ---
Vital Signs 11/09/24 11:51 Height 5 ft 4 in Weight 187 lb BMI 32.1 BP 108/76 Blood Pressure Location Lt brachial Position Sitting Respiration 18 Pulse 95 Pulse Source Pulse Oximeter Temp 98.2 F Temp Source Oral Pulse Oximetry (%) 96 Oxygen Delivery Method Room Air Intake Visit Reasons: Forgetting things F/U Intake Note: Pt is here today for a follow up visit. Pt states that she is forgetting a lot. Allergies aspirin (ASPIRIN) Allergy (Unknown, Verified 11/09/24 11:51) NAUSEA & VOMITING meperidine (From DEMEROL) Allergy (Unknown, Verified 11/09/24 11:51) UNKNOWN ibuprofen (IBUPROFEN) Adverse Reaction (Unknown, Verified 11/09/24 11:51) NAUSEA & VOMITING Medication List - Last Reconciled 11/09/24 by Felicia Butcher MD albuterol sulfate 90 mcg/actuation 2 puffs inhalation Q6H PRN cholecalciferol (vitamin D3) 25 mcg PO DAILY Tobacco use date assessed: 11/09/24 Dental Screening Dental Screen Date: 11/09/24 Did you have a dental visit in the last 12 months?: Yes Did you have a dental problem in the last 6 months where you did not have access to dental care?: No Was dental information given to patient?: Patient has dentist HPI Forgetting things F/U HPI Details Patient presents for a physical. She had episodes of feeling forgetful after the most recent urinary tract infection 2 months ago. Patient feels back to herself. 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 [facility] Medical History (Updated 11/09/24 @ 13:26 by Felicia Butcher MD) Cystitis Nicotine dependence, cigarettes, uncomplicated COPD (chronic obstructive pulmonary disease) Nocturnal hypoxemia Surgical History History of cholecystectomy (~2010) History of tonsillectomy History of kidney surgery Family History Father Atrial fibrillation Diabetes Enlarged prostate Dementia Brother Atrial fibrillation Mother Dementia Breast cancer Social History Housing: House Alcohol intake: current Alcohol intake frequency: does not drink Patient Tobacco Use Status: Current everyday Tobacco user Tobacco use type: Cigarette Cigarette Packs Per Day: 1 Cigarettes Per Day: 20 Years Smoked: onset 17, 1ppd x 38yrs - 38pyh Packs Per Year: 0 Packs per year/per ci.00 e-Cigarette/Vaping Use: Never Used service: No Current occupational status: employed 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 1. Little interest or pleasure in doing things: not at all 2. Feeling down, depressed, or hopeless: not at all 3. Trouble falling or staying asleep, or sleeping too much: not at all 4. Feeling tired or having little energy: not at all 5. Poor appetite or overeating: not at all 6. Feeling bad about yourself - or that you are a failure or have let yourself or your family down: not at all 7. Trouble concentrating on things, such as reading the newspaper or watching television: not at all 8. Moving or speaking so slowly that other people could have noticed. Or the opposite - being so fidgety or restless that you have been moving around a lot more than usual: not at all 9. Thoughts that you would be better off or of hurting yourself in some way: not at all Total score: 0 Depression Screening Interpretation: Negative Depression Screening Done: Yes 64478 - PHQ-9 Billing: Yes Source: Developed by Drs. Mauro Najera, Juanita Moulton, Chilo Brar and colleagues, with an educational timmy from [employer]. Thrive Questionnaire Date Thrive assessed: 11/09/24 I am a: Patient What is your living situation today?: I have a steady place to live Within the past 12 months, did the food you bought not last and you didn't have the money to get more?: Never true Within the past 12 months, did you worry whether your food would run out before you got money to buy more?: Never true Do you have trouble paying for medicines?: No Do you have trouble getting transportation to medical appointments?: No Do you have trouble paying your heating and electricity bill?: No Do you have trouble taking care of your child, family member or friend?: No Do you have trouble with day-to-day activities such as bathing, preparing meals, shopping, managing finances, etc.?: No Are you currently unemployed and looking for a job?: No Are you interested in more education?: No Please select the resources that you would like help with: None Currently or been in a relationship where the following occur: No concerns reported THRIVE Score: 0 AUDIT C Alcohol Use Questionnaire (AUDIT-C) 1. How often do you have a drink containing alcohol?: Monthly or less 2. How many drinks containing alcohol do you have on a typical day when you are drinking?: 1 or 2 3. How often do you have six or more drinks on one occasion?: Never Total Score: 1 CATRACHITA-7 AMB Questionnaire CATRACHITA-7 Date CATRACHITA - 7 assessed: 11/09/24 Feeling nervous, anxious, or on edge: 0 = Not at all Not being able to stop or control worryin = Not at all Worrying too much about different things: 0 = Not at all Trouble relaxin = Not at all Being so restless that it is hard to sit still: 0 = Not at all Becoming easily annoyed or irritable: 1 = Several days Feeling afraid as if something awful might happen: 0 = Not at all Total CATRACHITA-7 score (0-4 normal; 5-9 mild; 10-14 moderate; 15-21 severe): 1 Source: Developed by Drs. Mauro Najera, Juanita Moulton, Chilo Brar and colleagues, with an educational timmy from [employer]. CATRACHITA-7 Assessment Billing CATRACHITA-7 Assessment Tool: CATRACHITA-7 Assessment 34966 Review of Systems Const All systems reviewed & are unremarkable except as noted in HPI and below Eyes Reports no additional complaints ENT Reports no additional complaints Card Reports no additional complaints Resp Reports no additional complaints GI Reports no additional complaints Reports no additional complaints Physical exam (Primary Care) Vital Signs: Last Vital Signs Temp 98.2 F 11/09/24 11:51 Pulse 95 11/09/24 11:51 Resp 18 11/09/24 11:51 BP 108/76 11/09/24 11:51 Pulse Ox 96 11/09/24 11:51 Oxygen Delivery Method Room Air 11/09/24 11:51 BMI result Body Mass Index 32.1 Tobacco/Smoking Status: Tobacco use Status Tobacco use date assessed 11/09/24 11/09/24 11:52 Patient Tobacco Use Status Current everyday Tobacco 11/09/24 11:52 Tobacco use type Cigarette 11/09/24 11:52 e-Cigarette/Vaping Use Never Used 11/09/24 11:52 PHQ-9: PHQ-9 Score PHQ-9: Total score 0 11/09/24 12:12 Depression Screening Interpretation: Negative Thrive Assessment: Date of Thrive Assessment Date Thrive assessed 11/09/24 11/09/24 12:12 Currently or been in a relationship where the following occur: No concerns reported Const General: no acute distress HENMT Head: Yes normal to inspection Ears: TM's normal bilaterally Face and sinus: Yes normal facial exam Throat: Yes posterior oropharynx normal Eyes General: appearance normal, both eyes and all related structures Neck Neck: Yes no lymphadenopathy and Yes supple Resp Effort & Inspection: normal respiratory effort Auscultation: clear to auscultation bilaterally Cardio Rhythm: regular rhythm Heart sounds: S1 normal heart sound present and S2 normal heart sound present GI Inspection: Yes normal to inspection Palpation (GI): Soft to palpation Percussion: Yes normal to percussion Auscultation: normal bowel sounds Coding Level of Care Code Est Pt Prev Care 40-64y(60196) Diagnoses Nicotine dependence, cigarettes, uncomplicated F17.210 Annual physical exam Z00.00 Additional Codes CATRACHITA-7 Assessment Billing - CATRACHITA-7 Assessment Tool: CATRACHITA-7 Assessment 10250 ([id number]) PHQ-9 - 78293 - PHQ-9 Billing: Yes ([id number]) Assessment & Plan Assessment & Plan (1) Nicotine dependence, cigarettes, uncomplicated: Comment: (Current smoker - onset 17, 1ppd x 41yrs, 35+pyh) Code(s): F17.210 - Nicotine dependence, cigarettes, uncomplicated Category: Medical Plan: Tobacco quitting discussed with the patient. She is in the lung cancer screening program (2) Annual physical exam: Code(s): Z00.00 - Encounter for general adult medical examination without abnormal findings Category: Medical Plan: Well-balanced diet regular physical activity discussed with the patient. She will return for fasting blood work. Mammogram will be scheduled and patient will have Cologuard done she declined colonoscopy Orders: Orders Comprehensive [place]. Panel Fast Today F17.210 - Nicotine dependence, cigarettes, uncomplicated, J44.9 - Chronic obstructive pulmonary disease, unspecified, Z00.00 - Encounter for general adult medical examination without abnormal findings Complete Blood Count Auto Diff Today F17.210 - Nicotine dependence, cigarettes, uncomplicated, J44.9 - Chronic obstructive pulmonary disease, unspecified, Z00.00 - Encounter for general adult medical examination without abnormal findings Lipid Panel Today 7.210 - Nicotine dependence, cigarettes, uncomplicated, J44.9 - Chronic obstructive pulmonary disease, unspecified, Z00.00 - Encounter for general adult medical examination without abnormal findings Urine Culture Today Z00.00 - Encounter for general adult medical examination without abnormal findings MM screening mammo BI Today 7.210 - Nicotine dependence, cigarettes, uncomplicated, J44.9 - Chronic obstructive pulmonary disease, unspecified, Z00.00 - Encounter for general adult medical examination without abnormal findings, Z12.31 - Encounter for screening mammogram for malignant neoplasm of breast TSH reflex Free T4 Today F17. - Nicotine dependence, cigarettes, uncomplicated, J44.9 - Chronic obstructive pulmonary disease, unspecified, Z00.00 - Encounter for general adult medical examination without abnormal findings Microalbumin, Random (w Creat) Today F17.210 - Nicotine dependence, cigarettes, uncomplicated, J44.9 - Chronic obstructive pulmonary disease, unspecified, Z00.00 - Encounter for general adult medical examination without abnormal findings Referrals Cologuard Test Z12.11 - Encounter for screening for malignant neoplasm of colon, Z12.12 - Encounter for screening for malignant neoplasm of rectum
--- OUTSIDE RECORDS SUMMARY | 2024-11-09 14:29 | XMS_ITS | Clinical Summary ---
Author Organization [address] [place] [address] [place] [id number] Phone Care Team Providers Care Skein Spooler Name Role Phone Physician, No Pcp Primary Care Provider Unavaila ble Allergies Active Allergy Reactions Criticality Noted Date Comments Meperidine Hcl 05/24/2009 Propoxyphene Hcl 05/24/2009 Medications No known medications Surgical History Surgery Date Site/Laterality Comments TONSILLECTOMY PROCEDURE: HISTORICAL TONSILLECTOMY OTHER SURGICAL HISTORY PROCEDURE: [place] URETERORRHAPHY SUTURE URETER SEPARATE PROCEDURE; COMMENT: uncertain [...] Last Done Comments Breast Cancer Screening 1964 Pneumococcal Vaccine: 50+ Years (1 of 2 - PCV) 09/01/1983 Cervical Cancer Screening: P ap Smear 1985 Zoster Vaccines (1 of 2) 2014 Depression Screening 02/18/2024 Colorectal Cancer Screening: Colonoscopy 04/07/2024 HIV Screening 04/07/2024 Hepatitis C Screening 04/07/2024 Social Influencers of Health Screening 04/07/2024 COVID-19 Vaccine (3 - 2024-2 6 season) 2024 06/26/2020, 05/29/2020 Influenza Vaccine (#1) 2024 DTaP,Tdap,and Td Vaccines [...] patient's age to complete this topic Hepatitis B Vaccines Aged Out No long er eligible [...] to complete this topic Insurance Care Teams Skein Spooler Relationship Specialty Start Date End Date Physician, No Pcp PCP - General 04/07/24
--- OUTSIDE RECORDS SUMMARY | 2024-11-09 14:29 | XMS_ITS | Clinical Summary ---
Author Organization [facility] Address [address] [place] [address] Care Team Providers Care Commercial Lines Account Manager Name Role Phone Pcp, No Primary Care Provider [phone] Social History Tobacco Use Types Packs/Day Years [...] Adults 18 yrs or above (or HM Modifier)([facility]) 1982 Hepatitis C Virus Infection in Adolescents and Adults: Screening (or Modifier) ([facility]) 1983 [facility] Screening Reminder: Ericka aguilar for all adults ([facility]) 1982 Tobacco Smoking Cessation: i n Adults excluding Women: Behavioral and Pharmacotherapy Interventions ([facility]) 1982 DTaP/Tdap/Td Vaccines ([facility]) (1 - Tdap) 09/01/1983 Cervical Cancer Screenin 1-65 yrs of age (or Modifier) 1985 Cervical Cancer Screening: P ap every 3 yrs pts age 21-65 1985 Cervical Cancer: Pap Screeni ng with Modifier timing ([facility]) 1985 Cervical Cancer: hrHPV alone or with cotesting Pap for Pts 30-65yrs screening every 5yrs ([facility]) 1985 Colorectal Cancer Screening 45 -75 Yrs (or HM Modifier ) 2009 Colorectal Cancer: FLEXIBLE SIGMOIDOSCOPY Screening every 5 yrs 2009 Colorectal Cancer: Fecal Imm unochemical Test (FIT) Annually [facility] 2009 Colorectal Cancer: High-sens itivity gFOBT Screening Annually [facility] 2009 Colorectal Cancer: Stool Col oguard Screening every 3 yrs 2009 Colorectal Cancer:CT Colonography Screening every 5 yr s 2009 Breast Cancer: Screening Ericka ually age 50-74 yrs (or HM Modifier)([facility]) 2014 Pneumococcal Vaccination Scr eening: Patients 50+ yrs of age ([facility]) (1 of 1 - PCV) 2014 Zoster/Shingles Vaccine Seri es Screening: Adults aged 18+ yrs (or HM Modifiers)([facility]) (1 of 2) 2014 Flu Vaccination: Yearly for ages 18mos through 64 years (or Modifier)([facility]) 09/17/2024 COVID-19 Vaccine Screening: Initial Series and Booster Status ([facility]) (2023- season) 2024 RSV Vaccines (1 - 1-dose 75+ series) 09/01/2039 Medical Devices Not on file Insurance [facility] Care Teams Commercial Lines Account Manager Relationship Specialty Start Date End Date Pcp, No PCP - General Family Medicine 06/02/20
== END 2024-11-09 13:27 | disposition home or self-care (01) ==
LOC: HO.HMCC 11:34
PROVIDERS: PCP Internal Medicine; Visit Provider Internal Medicine
DX: F17.210 Nicotine dependence, cigarettes, uncomplicated (principal); Z00.00 Encounter for general adult medical examination without abnormal findings

== ENCOUNTER → 2024-11-09 11:33 | Outpatient (BNVA) | payer BC, SELFPAY | PROVIDERS: PCP Internal Medicine; Visit Provider Internal Medicine | DX: Z00.00 Encounter for general adult medical examination without abnormal findings (principal); J44.9 Chronic obstructive pulmonary disease, unspecified; F17.210 Nicotine dependence, cigarettes, uncomplicated | CPT/HCPCS: 96127 ==

== ENCOUNTER 2024-11-24 08:41 | Outpatient (REF) | payer BC, SELFPAY ==
[2024-11-24 10:38] LABS: MANUAL DIFF FLAG NO
[2024-11-24 10:39] LABS: Hematocrit 43.8 % (37.0-47.0); Hemoglobin 14.7 g/dl (12.0-16.0); Imm Gran Abs Auto 0.03 X10*3/uL (0.00-0.03); Imm Gran Pct Auto 0.3 % (0.0-0.4); Lymphocytes Absolute Auto 2.5 X10*3/uL (1.2-4.9); Mean Corpuscular HGB Conc 33.6 g/dl (31.0-35.0); Mean Corpuscular Hemoglobin 28.8 pg (27.0-33.0); Mean Corpuscular Volume 85.9 fL (80.0-98.0); NRBC Abs Auto 0.000 X10*3/uL (0.0-0.012); NRBC Pct Auto 0.0 /100WBC (0.0-0.2); Platelet Count 236 X10*3/uL (160-400); Red Blood Count 5.10 X10*6/uL (4.20-5.50); White Blood Count 8.6 X10*3/uL (4.8-10.8)
[2024-11-24 11:17] LABS: Alanine Aminotransferase 35 U/L (0-31); Albumin Level 4.3 g/dL (3.5-5.0); Alkaline Phosphatase 84 U/L (39-117); Anion Gap 11 (12-20); Aspartate Amino Transferase 35 U/L (5-31); Blood Urea Nitrogen 12 mg/dL (9-16); Calcium 10.1 mg/dL (8.4-10.2); Carbon Dioxide 26 mmol/L (22-29); Chloride 109 mmol/L (96-108); Cholesterol 188 mg/dL (<200); Estimated Glomerular Filt Rate > 60; HDL Cholesterol 50 mg/dL (>40); Potassium 4.5 mmol/L (3.3-5.1); Sodium 141 mmol/L (135-145); Total Protein 7.0 g/dL (6.5-8.0); Triglycerides 97 mg/dL (<150)
[2024-11-24 11:37] LABS: Microalbum/Creatinine Ratio Ur 8.0 ug/mg cr (<30)
[2024-11-24 11:55] LABS: Free T4 (Free Thyroxine) 0.92 ng/dL (0.71-1.85)
== END 2024-11-24 08:42 | disposition home or self-care (01) ==
LOC: HO.HMGCLDS 08:41
PROVIDERS: PCP Internal Medicine; Visit Provider Internal Medicine
DX: Z00.00 Encounter for general adult medical examination without abnormal findings (principal); J44.9 Chronic obstructive pulmonary disease, unspecified; F17.210 Nicotine dependence, cigarettes, uncomplicated; Z13.6 Encounter for screening for cardiovascular disorders; Z13.29 Encounter for screening for other suspected endocrine disorder
CPT/HCPCS: 36415; 80053; 80061; 82043; 82570; 84439; 84443; 85025; 87086

== ENCOUNTER 2025-01-01 09:23 | Outpatient (REF) | payer BC, SELFPAY ==
--- NOTE | ~2025-01-01 | MM_ITS ---
EXAMINATION: MM SCREENING DIGITAL BREAST TOMOSYNTHESIS, BILATERAL CLINICAL INFORMATION: Screening. Asymptomatic. COMPARISON: December 22, 2017 TECHNIQUE: Digital breast tomosynthesis is performed in mediolateral oblique and craniocaudal views along with computer-aided detection (CAD). Synthesized 2D images are generated from the tomosynthesis. Best possible left MLO view according to technologist notes. FINDINGS: BREAST COMPOSITION: There are scattered areas of fibroglandular density. BILATERAL BREASTS: No significant masses, suspicious calcifications or other abnormalities are seen in either breast. MM/MM tomosynthesis screening BI IMPRESSION: BILATERAL BREASTS: Negative, no mammographic evidence of malignancy. Normal interval follow-up is recommended in 12 months. ASSESSMENT: BI-RADS: Category 1: Negative RECOMMENDATION: Routine annual mammography screening. FOLLOW-UP: 1 year F/U This examination should not preclude the clinical evaluation of a suspicious palpable abnormality. This patient's information was entered into a reminder system with a target due date for their next mammogram. Electronically signed by: Zac Anderson MD 01/03/2025 06:53 PM EST
--- OUTSIDE RECORDS SUMMARY | 2025-01-01 09:26 | XMS_ITS | Data Portability ---
Author Organization RICHY Ann [employer], [address] Address [address] [place] [address] Care Team Providers Care Web Development Consultant Name Role Phone ROBERT WOODY Primary Care Provider Assessment Encounter Date Assessment Date Assessment LastModified [...] Lab rapid flu (A+B) 2023 024 [facility] [address], [address] [place], [address], 4 13:09:24 urinalysis, dipstick 2022 023 josé miguel [facility] [address], [address] [place], [address], 3 15:53:20 culture, urine 2022 023 [facility], [address] [place] [address], [place], [address], 3 06:07:26 Referral None recorded. Procedures None recorded. Surgeries None recorded. Imaging XR, chest, 2 view 2023 [email or web address], [address] [facility], [place], [address], 19:49:57 Medication Orders Claritin-D 12 Hour 5 mg-120 mg tablet,exte nded release 2023 [id number], [address], [place], [id number], 4 19:48:44 albuterol sulfate HFA 90 mcg/actuati on aerosol inhaler 2023 [facility], [address], [place], [id number], 4 19:48:45 benzonatate 200 mg capsule 2023 024 [facility]05230, [address], [place], [id number], 4 19:48:44 amoxicillin 875 mg-aditya m clavulanate 125 mg tablet 2023 024 [facility] #20892, [address], [place], [id number], 4 12:52:30 Macrobid 100 mg capsule 2022 023 [facility] #85248, [address], [place], [id number], 12:43:14 Patient TargetsNo targets recorded. Patient Instructions Encounter Date Encounter Id Patient Instructions Last Modified By Organization Details Last Modified Time 10/20/2022 [id number] We recommend you get a repeat urinalysis [...] Department. [email or web address] Not available 10/20/2022 15:43:10 07/09/2023 [id number] cough: care instructions [email or web address] Not available 07/09/2023 [...] routine FINAL REPORT abnormal Not Available [facility] ([facility]) [address] [facility], [place], [address], 10/24/2022 10:06:46 10/21/19 23 10/24/2022 URINE CULTU [...] ng units per mL Not Available [facility] ([facility]) [address] [facility], [place], [address], 10/24/2022 10:06:46 10/21/19 23 10/24/2022 URINE CULTU [...] thopr im/Osorio lfa S Not Available [facility] ([facility]) [address] [facility], [place], [address], 10/24/2022 10:06:46 10/21/19 23 10/20/2022 urina lysis , dipst ick Unknown Analyte Normal = light yellow Not Available [facility] [address] [place], [address], 10/20/2022 15:39:48 10/21/19 23 10/20/2022 urina lysis , dipst ick Unknown Analyte Yellow Not Available [id number] [place] [address] [address] [place], [address], 10/20/2022 15:39:48 10/21/1910/20/2022 urina lysis , dipst ick Unknown Analyte Normal = clear Not Available [address] [place], [address], 10/20/2022 15:39:48 10/21/19 23 10/20/2022 urina lysis , dipst ick Unknown Analyte Cloudy Not Available [address] [place] [address] [address] [place], [address], 10/20/2022 15:39:48 10/21/19 23 10/20/2022 urina lysis , dipst ick Unknown Analyte Normal = negati ve Not Available [address] [place], [address], 10/20/2022 15:39:48 10/21/19 23 10/20/2022 urina lysis , dipst ick Unknown Analyte Negati ve Not Available [facility] [address] [place], [address], 10/20/2022 15:39:48 10/21/19 23 10/20/2022 urina lysis , dipst ick Unknown Analyte Normal = Negati ve Not Available [address] [place], [address], 10/20/2022 15:39:48 10/21/19 23 10/20/2022 urina lysis , dipst ick Unknown Analyte Negati ve Not Available [address] [place], [address], 10/20/2022 15:39:48 10/21/19 23 10/20/2022 urina lysis , dipst ick Unknown Analyte Normal = Negati ve Not Available [address] [place], [address], 10/20/2022 15:39:48 10/21/1910/20/2022 urina lysis , dipst ick Unknown Analyte Negati ve Not Available [address] [place], [address], 10/20/2022 15:39:48 10/21/1910/20/2022 urina lysis , dipst ick Unknown Analyte Normal = 1.010, 1.015, 1.020 Not Available [address] [place], [address], 10/20/2022 15:39:48 10/21/1910/20/2022 urina lysis , dipst ick Unknown Analyte 1.030 Not Available [facility] [address] [place], [address], 10/20/2022 15:39:48 10/21/1910/20/2022 urina lysis , dipst ick Unknown Analyte Normal = Negati ve Not Available [address] [place], [address], 10/20/2022 15:39:48 10/21/19 23 10/20/2022 urina lysis , dipst ick Unknown Analyte Trace- intact Not Available [address] [place], [address], 10/20/2022 15:39:48 10/21/1910/20/2022 urina lysis , dipst ick Unknown Analyte Normal = 6.5, 7.0, 7.5, 8.0 Not Available [address] [place], [address], 10/20/2022 15:39:48 10/21/19 23 10/20/2022 urina lysis , dipst ick Unknown Analyte 6.0 Not Available [facility] [address] [place], [address], 10/20/2022 15:39:48 10/21/1910/20/2022 urina lysis , dipst ick Unknown Analyte Normal = Negati ve Not Available [address] [place], [address], 10/20/2022 15:39:48 10/21/1910/20/2022 urina lysis , dipst ick Unknown Analyte 30 mg/dL Not Available [address] [place], [address], 10/20/2022 15:39:48 10/21/1910/20/2022 urina lysis , dipst ick Unknown Analyte Normal = 0.2, 1.0 Not Available [address] [place], [address], 10/20/2022 15:39:48 10/21/1910/20/2022 urina lysis , dipst ick Unknown Analyte 0.2 E.U./d L Not Available [address] [place], [address], 10/20/2022 15:39:48 10/21/19 23 10/20/2022 urina lysis , dipst ick Unknown Analyte Normal = Negati ve Not Available [address] [place], [address], 10/20/2022 15:39:48 10/21/19 23 10/20/2022 urina lysis , dipst ick Unknown Analyte Positi ve Not Available [address] [place], [address], 10/20/2022 15:39:48 10/21/19 23 10/20/2022 urina lysis , dipst ick Unknown Analyte Normal = Negati ve Not Available [address] [place], [address], 10/20/2022 15:39:48 10/21/19 23 10/20/2022 urina lysis , dipst ick Unknown Analyte Small Not Available [facility] [address] [place] [address], [address], 10/20/2022 15:39:48 07/13/19 24 07/13/2023 rapid flu (A+B) Unknown Analyte negati ve Not Available [address] [place], [address], 07/09/2023 18:53:03 07/13/19 24 07/13/2023 rapid flu (A+B) Unknown Analyte negati ve Not Available [address] [place] [address], [address], 07/09/2023 18:53:03 07/13/19 24 07/13/2023 rapid flu (A+B) Unknown Analyte yes Not Available [facility] [address] [place] [address], [address], 07/09/2023 18:53:03 07/09/19 24 07/09/2023 XR, chest , 2 view No observ ation record ed. sara [facility] [address] [place], [address], 07/09/2023 20:08:40 Result Notes None recorded. Problems Name Problem SNOMED Code Status Onset Date Resolution Date Notes Provider Name and Address Organization Details Recorded Time Kidney disease 09483925 Active 023 JOSE DRINKWINE null, [place] - [facility] 3 15:34:22 Arthritis 0522237 Active 023 JOSE DRINKWINE null, [place] - [facility] 3 15:34:52 Cough 13667594 Active 024 LONG AKM NP [address] [place], [address], [place] - [facility] 4 19:03:04 Acute bronchitis 70554164 Active 024 LONG KAM NP [address] [place], [address], [place] - [facility] 4 19:46:16 Upper respiratory infection 22719726 Active 024 LONG KAM NP [address] [place], [address], [place] - [facility] 4 19:47:54 [...] Name and Address Organization Details Recorded Time 626541 Demerol medicatio n hallucina tions Not available Not available 10/20/2022 98117 1 RxNorm JOSE DRINKKRYSTALE null, [place] - [facility] 3 15:33:30 295094 propoxyph sheela hydrochlo ride medicatio n hallucina tions Not available Not available 10/20/2022 91756 RxNorm JOSE VEE null, [place] - [facility] 3 15:33:45 794991 aspirin medicatio n Not available Not available [...] Updated DateTime 4 162.56 cm 31.8 kg/m2 27403.5 9 g 4 18 /min 98.5 [degF] 96 % 96 % 75 /min 108/78 mm[Hg] Augusta Stanley MT [facility] 4 12:42:46 Date Recorded Body height Body mass index (BMI) Body weight Body temperature Respiratory rate Heart rate Oxygen saturation Oxygen saturation in Arterial blood by Pulse oximetry Systolic And Diastolic Provider Name and Address Organization Details Last Updated DateTime 4 162.56 cm 31.8 kg/m2 10793.5 9 g 97.8 [degF] 16 /min 88 /min 98 % 98 % 92/60 mm[Hg] Katherine Hernandez [facility] 4 18:52:29 Date Recorded Body height Body mass index (BMI) Body weight Pain severity - 0-10 verbal numeric rating [Score] - Reported Body temperature Respiratory rate Heart rate Oxygen saturation Oxygen saturation in Arterial blood by Pulse oximetry Systolic And Diastolic Provider Name and Address Organization Details Last Updated DateTime 3 162.56 cm 31.4 kg/m2 05193.4 g 5 97.7 [degF] 16 /min 82 /min 97 % 97 % 110/62 mm[Hg] JOSE VEE [facility] 3 15:39:15 Social History Question Answer Notes LastModified by Organizat ion Details LastModified Time Tobacco Smoking Status Current Every Day Smoker 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 porter [facility] 10/20/2022 15:36:08 Have You Had A Flu [...] 50 mcg/0.25mL dose 05/29/2020 completed RICHY Sosa [facility] 03/08/2023 12:42:53 COVID-19, mRNA, LNP-S, PF, 100 mcg/0.5mL dose or 50 mcg/0.25mL dose 06/26/2020 completed RICHY Sosa - [facility] 03/08/2023 12:42:53 Tdap 08/02/2016 completed RICHY Sosa - [facility] 03/08/2023 12:42:53 Tdap 09/03/2010 completed RICHY Sosa - [facility] 03/08/2023 12:42:53 Past Encounters Encounter ID Performer Location Encounter Start Date Encounter Closed Date Diagnosis/Indication Diagnosis SNOMED-CT Code Diagnosis ICD10 Code Diagnosis IMO Codes Diagnosis Note [id number] [address] [place] [address] 05/03/2020 16:18:26 05/03/2020 17:10:02 [id number] [address] [facility] [address] [place] [address] 07/22/2015 17:52:21 07/22/2015 18:53:17 [id number] [address] [place] [address] 04/28/2016 18:30:26 04/28/2016 18:55:32 [id number] LAURIE HODGE MD [address] [place] [address] 10/20/2022 15:23:24 10/20/2022 15:54:53 Acute urinary tract infection 666718913 N39.0 [id number] RICHY Lopez [address] [place] [address] 03/08/2023 12:26:23 03/08/2023 12:54:30 Infection of tooth 993806687 K04.7 Based on your presentati on and [...] which should help the cough.2. Half Peroxide/H kaur Water Rinses3. Make an appointmen t with [...] to your eye. Thank you for using [employer] today, please feel free to contact our office if you have any questions or concerns. [id number] [place] [address] [facility] [address] [place] [address] 07/09/2023 18:45:48 07/09/2023 19:49:57 Cough 48465293 R05.9 Acute bronchitis 3550406 2 J20.9 Upper resp iratory infection 69561821 J06.9 Health Concerns Section Related Observation LastModified by Organization Detai ls LastModified Time None Recorded Concern Status LastModified by Organization Details LastModified Time None Recorded Advance Directives Directive None Recorded Payers Insurance Date Sequence Insurance Name Policy Number Policy Richards Covered Member ID Richards Member ID Guarantor Name 07/09/2023 1 RADHA (PPO) [id number] Dalia Roa [id number] Dalia Roa Notes Date Note Type Note Provider Name and Address Organization Details Recorded Time 3 text/html Urinary Complaint FemaleReported by PatientUrinary problemsFor uti symptoms, patient reportspain during urinationandurinary frequencybut reportsno blood in the urine,no vaginal discharge,no urgency,no pain in the flank,no fever/chills,no incontinence,no recurrent uti, andno known exposure to std. For source of patient information, patient reportsinformation obtained from patientandpatient arrived at urgent care ambulatory. For severity, patient reportsmild. For duration, patient reports1 days. For modifying factors, patient reportsnothing gives relief.frequency and urgency x 1 day. denies any fever or fever with chills, denies any History of renal stone or bladder issues. frequency and urgency x 1 day. denies any fever or fever with chills, denies any History of renal stone or bladder issues. Mihir Shen NP [address] [place], [address], [place] [facility] 10/20/2022 15:54:36 4 text/html 57 y/o female here with dental pain for the past 2 weeks. She is trying to find a dentist. Taking apap around the clock with no relief.Unable to take ibuprofen due to kidney disease RICHY Lopez [address] [place], [address], [place] - [facility] 03/08/2023 13:01:36 4 text/html CoughReported by PatientHPIFor context, patient reportssmoker. For source of patient information, patient reportsinformation obtained from patientandpatient arrived at urgent care ambulatory. For severity, patient reportsmild. For associated symptoms, patient reportsno fever,no chills,no chest pain,no heartburn,no nausea,no vomiting,no wheezing, andno post nasal drip. LONG KAM NP [address] [place], [address], [employer] PA - [facility] 07/09/2023 20:06:34 OBGyn Episode No OBEpisode recorded.
== END 2025-01-01 09:24 | disposition home or self-care (01) ==
LOC: HO.MAMMO 09:23
PROVIDERS: PCP Internal Medicine; Visit Provider Internal Medicine
DX: Z12.31 Encounter for screening mammogram for malignant neoplasm of breast (principal)
CPT/HCPCS: 77063; 77067

== ENCOUNTER → 2025-01-01 09:45 | Outpatient (BNV) | payer BC, SELFPAY | PROVIDERS: PCP Internal Medicine; Visit Provider Radiology Body Imaging | DX: Z12.31 Encounter for screening mammogram for malignant neoplasm of breast (principal) | CPT/HCPCS: 77063; 77067 ==